=== PATIENT | female | born 1950 | race Caucasian/White ===

== ENCOUNTER 2020-06-19 07:55 | Outpatient (CLI) | payer MEDICARE, OTHER, SELFPAY ==
[2020-06-19 08:36] LABS: Basophils Percent Auto 0.5 % (0.2-1.2); Eosinophils Absolute Auto 0.1 K/mm3 (0-0.3); Eosinophils Percent Auto 2.9 % (0-4.4); Hematocrit 38.1 % (37.0-47.0); Hemoglobin 11.7 g/dL (12.0-15.0); Lymphocytes Absolute Auto 1.53 K/mm3 (0.9-3.2); Lymphocytes Percent Auto 36.9 % (18.3-44.2); Mean Corpuscular HGB Conc 30.7 g/dl (32-36); Mean Corpuscular Hemoglobin 19.8 pg (26-34); Mean Corpuscular Volume 64.6 fl (80-100); Mean Platelet Volume 10.3 fl (7.4-10.4); Monocytes Absolute Auto 0.2 K/mm3 (0.1-0.6); Monocytes Percent Auto 5.5 % (2.6-8.5); Neutrophils Absolute Auto 2.3 K/mm3 (1.3-6.7); Neutrophils Percent Auto 54.2 % (45.5-73.1); Platelet Count Result 260 k/mm3 (150-375); Red Cell Distribution Width 16.4 % (11.5-14.5); White Blood Count 4.2 K/mm3 (4.5-10.0)
[2020-06-19 09:00] LABS: Alanine Aminotransferase 24 U/L (4-35); Albumin Level 4.3 g/dL (3.5-5.1); Alkaline Phosphatase 69 U/L (38-126); Anion Gap 5 mmol/L (8-16); Aspartate Amino Transferase 31 U/L (14-36); Bilirubin,Total 0.4 mg/dL (0.2-1.3); Blood Urea Nitrogen 16 mg/dL (7-17); Calcium 9.2 mg/dL (8.4-10.2); Carbon Dioxide 29 mmol/L (22-30); Chloride 107 mmol/L (98-107); Cholesterol 188 mg/dL (0-200); Estimated Glomerular Filt Rate 55; Glucose 104 mg/dL (65-105); HDL Direct 45 mg/dL; Potassium 4.2 mmol/L (3.4-5.0); Sodium 141 mmol/L (137-145); Triglycerides 124 mg/dL (<150)
[2020-06-19 09:14] LABS: LDL Cholesterol Direct 115 mg/dL
[2020-06-23 20:12] LABS: Vitamin D 1,25 (OH)2 Total 65 pg/mL (18-72); Vitamin D2 1,25 (OH)2 <8 pg/mL; Vitamin D3 1,25 (OH)2 65 pg/mL
== END 2020-06-19 07:56 | disposition home or self-care (01) ==
PROVIDERS: PCP Family Medicine; Visit Provider Family Medicine
DX: E55.9 Vitamin D deficiency, unspecified (principal); F32.9 Major depressive disorder, single episode, unspecified; K27.9 Peptic ulcer, site unspecified, unspecified as acute or chronic, without hemorrhage or perforation; Z86.39 Personal history of other endocrine, nutritional and metabolic disease; D56.1 Beta thalassemia; M10.9 Gout, unspecified; Z98.84 Bariatric surgery status; E78.2 Mixed hyperlipidemia; E79.0 Hyperuricemia without signs of inflammatory arthritis and tophaceous disease
CPT/HCPCS: 36415; 80053; 80061; 82652; 84443; 84550; 85025

== ENCOUNTER 2020-08-13 08:46 | Outpatient (CLI) | payer MEDICARE, OTHER, SELFPAY ==
--- NOTE | ~2020-08-13 | MM_ITS ---
EXAMINATION: MM screening [facility] BI w ute HISTORY: Screening mammogram TECHNIQUE: Craniocaudal and mediolateral oblique 3-D tomosynthesis images were obtained and synthetic 2-D images were generated. CAD analysis was submitted and interpreted. COMPARISON: 10/28/2015 bilateral digital screening mammogram examination BREAST PARENCHYMAL COMPOSITION: There are scattered areas of fibroglandular density. FINDINGS: There is no evidence of suspicious mass, calcification, or architectural distortion to sugg est malignancy in either breast. There has been no suspicious interval change. IMPRESSION: 1. No mammographic evidence of malignancy. 2. Recommend routine screening mammography in one year. BI-RADS Category 1: Negative Reviewed, dictated and finalized at location A.
== END 2020-08-13 08:47 | disposition home or self-care (01) ==
LOC: ANHIMG 08:49
PROVIDERS: PCP Family Medicine; Visit Provider Family Medicine
DX: Z12.31 Encounter for screening mammogram for malignant neoplasm of breast (principal)
CPT/HCPCS: 77063; 77067

== ENCOUNTER → 2020-09-04 02:15 | Outpatient (CLI) | payer MEDICARE, OTHER, SELFPAY ==
[2020-09-04 19:56] LABS: SARS-CoV-2 RNA PCR Negative
== END ==
PROVIDERS: PCP Family Medicine; Visit Provider Internal Medicine Gastroenterology
DX: Z01.812 Encounter for preprocedural laboratory examination (principal); Z20.822 Contact with and (suspected) exposure to COVID-19
CPT/HCPCS: C9803; U0003; U0005

== ENCOUNTER 2020-09-08 02:59 | Day surgery (SDC) | payer MEDICARE, OTHER, SELFPAY ==
[2020-08-30 10:44] VITALS: BMI 30.6
--- NOTE | 2020-09-08 09:57 | PM.HPGS ---
History of Present Illness History of Present Illness Consent: Risks, benefits, and alternatives have been discussed and questions answered. Patient agrees to proceed with procedure. Chief complaint: hx of colon polyps Narrative: Thania Oliveira is a 70 year old female referred for colon cancer screening Review of Systems Review of Systems: All systems reviewed & are unremarkable except as noted in HPI and below PMFSH Past Medical History Medical History Adenomatous colon polyp Allergies Chronic anemia Encounter for screening colonoscopy History of hysteroscopy MDD (major depressive disorder) Neuropathy, sacral plexus Perforated ulcer PUD (peptic ulcer disease) Thalassemia, beta Surgical History Surgical History H/O gastric bypass History of cholecystectomy History of Dariel fundoplication Hx of endoscopy Hx of LASIK Family History Family History Father Lung cancer Mother Cerebrovascular accident Sibling CJD (Creutzfeldt-Russ disease) Other Gout Thalassemia, beta Social History Social History Social History: Smoking packs per day: 3 Smoking cigarettes per day: 60.0 Years smoked: 20 Smoking pack-years: 60.00 Smoking status: Former smoker Tobacco type: cigarettes Second hand tobacco smoke exposure: No Smoking end date: 10/18/93 Alcohol intake: unknown Substance use: never Substance use type: does not use Living arrangements: alone Gender identity (if verbalized by the patient): Female Meds Home Medications and Allergies Home Medications Medication Instructions Recorded Confirmed Type omeprazole 40 mg capsule,delayed 40 mg PO DAILY #90 cap 05/06/20 08/30/20 Rx release azelastine 137 mcg (0.1 %) nasal 137 mcg INTRANASAL Q12H #10 ml 06/18/20 08/30/20 Rx spray aerosol ezetimibe 10 mg tablet 10 mg PO DAILY #90 tablet 06/18/20 08/30/20 Rx fexofenadine 180 mg tablet 180 mg PO DAILY #90 tablet 06/18/20 08/30/20 Rx fluoxetine 10 mg tablet 10 mg PO DAILY #90 tablet 06/18/20 08/30/20 Rx fluticasone propionate 50 2 spray INTRANASAL DAILY #5 g 06/18/20 08/30/20 Rx mcg/actuation nasal spray,suspension montelukast 10 mg tablet 10 mg PO DAILY #90 tablet 06/18/20 08/30/20 Rx olopatadine 0.1 % eye drops 1 drp EACH EYE BID #5 ml 06/18/20 08/30/20 Rx linaclotide 145 mcg capsule 145 mcg PO DAILY #30 cap 06/25/20 08/30/20 Rx Bifidobacterium infantis [Align] 4 mg PO DAILY 08/30/20 08/30/20 History d-mannose 500 mg PO DAILY 08/30/20 08/30/20 History Allergies Allergy/AdvReac Type Severity Reaction Status Date / Time ciprofloxacin Allergy Mild RASH Verified 06/25/20 13:13 nitrofurantoin Allergy Unknown Hives / Verified 06/25/20 13:13 Red Face Exam Resp: Auscultation: clear to auscultation bilaterally Cardio: Rate: regular rate Rhythm: regular rhythm GI: GI Palp: Yes Soft to palpation and No Tenderness to palpation present (GI) Assessment and Plan Assessment and plan (1) Colon cancer screening: Code(s): Z12.11 - Encounter for screening for malignant neoplasm of colon Status: Acute Assessment and Plan: Colonoscopy with possible biopsy or polypectomy or cautery or injection of substances.
[2020-09-08 10:04] VITALS: BP 116/69; PULSE 57; RESP 16; TEMP 36.3; O2SAT 100; BMI 29.7
[2020-09-08] MEDS: LACTATED RINGERS 1,000 ML 150 ML IV CONT (10:09)
[2020-09-08 10:50] VITALS: BP 102/59; PULSE 50; RESP 25; O2SAT 99
[2020-09-08 11:00] VITALS: BP 123/70; PULSE 47; RESP 19; O2SAT 100
[2020-09-08 11:10] VITALS: PULSE 45; RESP 16; O2SAT 100
== END 2020-09-08 11:20 | disposition home or self-care (01) ==
PROVIDERS: PCP Family Medicine; Visit Provider Internal Medicine Gastroenterology
PROC: 0DJD8ZZ Inspection of Lower Intestinal Tract, Via Natural or Artificial Opening Endoscopic (ICD-10-PCS; CPT 45378; principal; 2020-09-08 10:30)
DX: Z12.11 Encounter for screening for malignant neoplasm of colon (principal); K63.5 Polyp of colon; D56.1 Beta thalassemia; D64.9 Anemia, unspecified; G54.1 Lumbosacral plexus disorders; K27.9 Peptic ulcer, site unspecified, unspecified as acute or chronic, without hemorrhage or perforation; Z98.84 Bariatric surgery status; F32.9 Major depressive disorder, single episode, unspecified; Z86.010 Personal history of colon polyps; Z90.49 Acquired absence of other specified parts of digestive tract; Z87.891 Personal history of nicotine dependence
CPT/HCPCS: 45380; 88305; J2704; J7120

== ENCOUNTER 2021-07-26 15:24 | Outpatient (CLI) | payer MEDICARE, OTHER, SELFPAY ==
[2021-07-26 15:43] LABS: Basophils Percent Auto 0.7 % (0.2-1.2); Eosinophils Absolute Auto 0.3 K/mm3 (0-0.3); Eosinophils Percent Auto 4.3 % (0-4.4); Hematocrit 35.6 % (37.0-47.0); Hemoglobin 11.1 g/dL (12.0-15.0); Immature Granulocyte Absolute 0.01 K/mm3 (0.00-0.031); Immature Granulocyte Percent A 0.2 % (0-0.5); Lymphocytes Absolute Auto 1.92 K/mm3 (0.9-3.2); Lymphocytes Percent Auto 32.1 % (18.3-44.2); Mean Corpuscular HGB Conc 31.2 g/dl (32-36); Mean Corpuscular Volume 64.3 fl (80-100); Mean Platelet Volume 10.2 fl (7.4-10.4); Monocytes Absolute Auto 0.5 K/mm3 (0.1-0.6); Monocytes Percent Auto 8.7 % (2.6-8.5); Neutrophils Absolute Auto 3.2 K/mm3 (1.3-6.7); Platelet Count Result 244 k/mm3 (150-375); Red Blood Count 5.54 M/mm3 (4.2-5.4); Red Cell Distribution Width 17.2 % (11.5-14.5)
[2021-07-26 15:57] LABS: Alanine Aminotransferase 21 U/L (4-35); Albumin Level 4.5 g/dL (3.5-5.1); Alkaline Phosphatase 82 U/L (38-126); Anion Gap 7 mmol/L (8-16); Aspartate Amino Transferase 31 U/L (14-36); Bilirubin,Total 0.5 mg/dL (0.2-1.3); Blood Urea Nitrogen 13 mg/dL (7-17); Calcium 8.6 mg/dL (8.4-10.2); Carbon Dioxide 23 mmol/L (22-30); Chloride 107 mmol/L (98-107); Cholesterol 231 mg/dL (0-200); Estimated Glomerular Filt Rate > 60; Glucose 116 mg/dL (65-110); HDL Direct 52 mg/dL; Potassium 4.5 mmol/L (3.4-5.0); Sodium 137 mmol/L (137-145); Triglycerides 360 mg/dL (<150)
[2021-07-26 16:08] LABS: LDL Cholesterol Direct 120 mg/dL
[2021-07-26 16:27] LABS: Thyroid Stimulating Hormone 0.123 uIU/mL (0.465-4.680)
== END 2021-07-26 15:25 | disposition home or self-care (01) ==
LOC: ANHLAB 15:29
PROVIDERS: PCP Family Medicine; Visit Provider Family Medicine
DX: I10 Essential (primary) hypertension (principal); E03.9 Hypothyroidism, unspecified; E78.2 Mixed hyperlipidemia; Z98.84 Bariatric surgery status
CPT/HCPCS: 36415; 80053; 80061; 82607; 84443; 85025

== ENCOUNTER 2021-08-10 01:31 | Day surgery (SDC) | payer MEDICARE, OTHER, SELFPAY ==
[2021-07-28 13:06] VITALS: BMI 30.6
[2021-08-10 12:41] VITALS: BP 151/75; PULSE 45; RESP 18; TEMP 36.1; O2SAT 100
[2021-08-10] MEDS: LACTATED RINGERS 1,000 ML 150 ML IV CONT (12:52)
--- NOTE | 2021-08-10 12:52 | WPDANESEPPF ---
Anes - Initial Pre Proc Eval Procedure: Operation Date: 08/10/21 13:45 Proposed Procedures p Esophagogastroduodenoscopy - Kevin Chapa MD Date/Time: 08/10/21 12:52 Surgeon: Kevin Chapa MD Pre Op Diagnosis: dysphagia Patient Data Age: 71 Gender: F Height: 1.68 m Weight: 88.6 kg Last Vital Signs Temp 97 F L 08/10/21 12:41 Pulse 45 L 08/10/21 12:41 Resp 18 08/10/21 12:41 BP 151/75 H 08/10/21 12:41 Pulse Ox 100 08/10/21 12:41 Allergies Allergy/AdvReac Type Severity Reaction Status Date / Time ciprofloxacin Allergy Mild RASH Verified 08/10/21 12:40 nitrofurantoin Allergy Unknown Hives / Verified 08/10/21 12:40 Red Face Home Medications Medication Instructions Recorded Confirmed Type Align 4 mg PO DAILY 08/30/20 07/28/21 History d-mannose 500 mg PO DAILY 08/30/20 07/28/21 History azelastine 137 mcg (0.1 %) nasal 137 mcg INTRANASAL Q12H #10 ml 01/04/21 07/28/21 Rx spray aerosol fexofenadine 180 mg tablet 180 mg PO DAILY #90 tablet 01/04/21 07/28/21 Rx fluticasone propionate 50 2 spray INTRANASAL DAILY #16 g 01/04/21 07/28/21 Rx mcg/actuation nasal spray,suspension omeprazole 40 mg capsule,delayed 40 mg PO DAILY #90 cap 04/05/21 07/28/21 Rx release ezetimibe [Zetia] 10 mg PO DAILY 07/28/21 07/28/21 History fluoxetine [Prozac] 40 mg PO DAILY 07/28/21 07/28/21 History Patient hx anesthesia problems: none Family hx anesthesia problems: none Results Review: All pre-operative results and documents have been reviewed as part of the pre-operative evaluation. [facility] Past Medical History Medical History Adenomatous colon polyp 2020, repeat in 2025 Allergies Bilateral pes planus Chronic anemia Encounter for screening colonoscopy MDD (major depressive disorder) Neuropathy, sacral plexus Perforated ulcer PUD (peptic ulcer disease) Thalassemia, beta Surgical History Surgical History H/O gastric bypass History of cholecystectomy History of hysteroscopy History of Dariel fundoplication Hx of endoscopy Hx of LASIK Family History Family History Father Lung cancer Mother Cerebrovascular accident Sibling CJD (Creutzfeldt-Russ disease) Other Gout Thalassemia, beta Social History Social History (Updated 07/26/21 @ 08:14 by Vane Honeycutt) Social History: Smoking packs per day: 2 Smoking cigarettes per day: 40.0 Years smoked: 20 Smoking pack-years: 40.00 Smoking status: Former smoker Tobacco type: cigarettes Second hand tobacco smoke exposure: No Smoking end date: 10/18/93 Alcohol intake: never Substance use: never Substance use type: does not use Living arrangements: with family Gender identity (if verbalized by the patient): Female Sexual Orientation (if Verbalized by the Patient): Straight or Heterosexual Spiritual care concerns: No Anes - Eval Final PreProcedure Day of Procedure 08/10/21 12:52 Patient weight: obese Heart: regular rate and rhythm Lungs: clear to auscultation Airway: Mallampati scale class II Neurological: alert and oriented Last oral intake: >/= 8 hours ASA classification: III Emergent: no Anesthetic plan: proceed Anesthesia type and monitoring: general GIVS and standard monitoring Results Review: All pre-operative results and documents have been reviewed as part of the pre-operative evaluation. Informed Consent: The patient's anesthetic plan and its attendant risks and benefits were discussed with the patient/family/POA. Questions were solicited and answers provided to the satisfaction of the patient/family/POA.
[2021-08-10 13:32] VITALS: BP 172/88; PULSE 60; RESP 18; O2SAT 97
[2021-08-10 13:42] VITALS: BP 162/83; PULSE 58; RESP 20; O2SAT 100
[2021-08-10 13:52] VITALS: BP 179/85; PULSE 50; RESP 18; O2SAT 100
--- NOTE | 2021-08-11 15:21 | PM.HPGS ---
History of Present Illness History of Present Illness Consent: Risks, benefits, and alternatives have been discussed and questions answered. Patient agrees to proceed with procedure. Chief complaint: dysphagia Narrative: Thania Oliveira is a 71 year old female with had difficulty swallowing for some time. She had an EGD 3 or 4 years ago but no narrowing was found. She states that is usually something like meat that will get caught either in the back of her throat her just inside the esophagus. It feels like it hangs up there. She can sometimes regurgitate what is not going down. Review of Systems Review of Systems: All systems reviewed & are unremarkable except as noted in HPI and below PMFSH Past Medical History Medical History Adenomatous colon polyp 2020, repeat in 2025 Allergies Bilateral pes planus Chronic anemia Encounter for screening colonoscopy MDD (major depressive disorder) Neuropathy, sacral plexus Perforated ulcer PUD (peptic ulcer disease) Thalassemia, beta Surgical History Surgical History H/O gastric bypass History of cholecystectomy History of hysteroscopy History of Dariel fundoplication Hx of endoscopy Hx of LASIK Family History Family History Father Lung cancer Mother Cerebrovascular accident Sibling CJD (Creutzfeldt-Russ disease) Other Gout Thalassemia, beta Social History Social History Social History: Smoking packs per day: 2 Smoking cigarettes per day: 40.0 Years smoked: 20 Smoking pack-years: 40.00 Smoking status: Former smoker Tobacco type: cigarettes Second hand tobacco smoke exposure: No Smoking end date: 10/18/93 Alcohol intake: never Substance use: never Substance use type: does not use Living arrangements: with family Gender identity (if verbalized by the patient): Female Sexual Orientation (if Verbalized by the Patient): Straight or Heterosexual Spiritual care concerns: No Meds Home Medications and Allergies Home Medications Medication Instructions Recorded Confirmed Type Align 4 mg PO DAILY 08/30/20 07/28/21 History d-mannose 500 mg PO DAILY 08/30/20 07/28/21 History azelastine 137 mcg (0.1 %) nasal 137 mcg INTRANASAL Q12H #10 ml 09/21/21 04/14/22 Rx spray aerosol fexofenadine 180 mg tablet 180 mg PO DAILY #90 tablet 01/04/21 07/28/21 Rx fluticasone propionate 50 2 spray INTRANASAL DAILY #16 g 01/04/21 07/28/21 Rx mcg/actuation nasal spray,suspension omeprazole 40 mg capsule,delayed 40 mg PO DAILY #90 cap 04/05/21 07/28/21 Rx release ezetimibe [Zetia] 10 mg PO DAILY 07/28/21 07/28/21 History fluoxetine [Prozac] 40 mg PO DAILY 07/28/21 07/28/21 History Allergies Allergy/AdvReac Type Severity Reaction Status Date / Time ciprofloxacin Allergy Mild RASH Verified 08/10/21 12:40 nitrofurantoin Allergy Unknown Hives / Verified 08/10/21 12:40 Red Face Exam Resp: Auscultation: clear to auscultation bilaterally Cardio: Rate: regular rate Rhythm: regular rhythm GI: GI Palp: Yes Soft to palpation and No Tenderness to palpation present (GI) Assessment and Plan Assessment and plan (1) Dysphagia: Code(s): R13.10 - Dysphagia, unspecified Status: Acute Assessment and Plan: EGD with possible biopsy or dilatation or cautery.
== END 2021-08-10 14:03 | disposition home or self-care (01) ==
PROVIDERS: PCP Family Medicine; Visit Provider Internal Medicine Gastroenterology
PROC: 0DJ08ZZ Inspection of Upper Intestinal Tract, Via Natural or Artificial Opening Endoscopic (ICD-10-PCS; CPT 43235; principal; 2021-08-10 13:45)
DX: R13.10 Dysphagia, unspecified (principal); K21.9 Gastro-esophageal reflux disease without esophagitis; Z98.84 Bariatric surgery status; Z87.891 Personal history of nicotine dependence; E66.9 Obesity, unspecified; Z68.31 Body mass index [BMI] 31.0-31.9, adult
CPT/HCPCS: 43239; 88305; J2001; J2704; J7120

== ENCOUNTER → 2021-08-19 02:12 | Outpatient (CLI) | payer MEDICARE, OTHER, SELFPAY ==
[2021-08-19 15:55] LABS: SARS-CoV-2 RNA PCR Negative
== END ==
PROVIDERS: PCP Family Medicine; Visit Provider Nurse Practitioner Gerontology
DX: R68.89 Other general symptoms and signs (principal); Z20.822 Contact with and (suspected) exposure to COVID-19
CPT/HCPCS: C9803; U0003; U0005

== ENCOUNTER 2021-08-30 09:44 | Outpatient (CLI) | payer MEDICARE, OTHER, SELFPAY ==
--- NOTE | ~2021-08-30 | MM_ITS ---
EXAMINATION: MM screening [facility] BI w ute HISTORY: Screening mammogram TECHNIQUE: Craniocaudal and mediolateral oblique 3-D tomosynthesis images were obtained and synthetic 2-D images were generated. CAD analysis was submitted and interpreted. COMPARISON: 08/13/2020, 10/28/2015, 03/25/2014 BREAST PARENCHYMAL COMPOSITION: There are scattered areas of fibroglandular density. FINDINGS: There is no suspicious mass, calcification, or architectural distortion to suggest malignan cy in either breast. There has been no suspicious interval change. IMPRESSION: 1. No mammographic evidence of malignancy. 2. Recommend routine screening mammography in one year. BI-RADS Category 1: Negative Reviewed, dictated and finalized at location A.
== END 2021-08-30 09:45 | disposition home or self-care (01) ==
PROVIDERS: PCP Family Medicine; Visit Provider Family Medicine
DX: Z12.31 Encounter for screening mammogram for malignant neoplasm of breast (principal)
CPT/HCPCS: 77063; 77067

== ENCOUNTER 2021-09-10 10:01 | Outpatient (CLI) | payer MEDICARE, OTHER, SELFPAY ==
[2021-09-10 11:44] LABS: Free T4 Free Thyroxine 1.21 ng/mL (0.78-2.19)
== END 2021-09-10 10:02 | disposition home or self-care (01) ==
PROVIDERS: PCP Family Medicine; Visit Provider Nurse Practitioner Gerontology
DX: E03.9 Hypothyroidism, unspecified (principal)
CPT/HCPCS: 36415; 84439; 84443; 84480

== ENCOUNTER 2021-10-19 04:49 | Observation (INO) | payer MEDICARE, OTHER, SELFPAY ==
[2021-10-19] VITALS (37 sets, daily range): BP systolic 119–183; BP diastolic 65–83; PULSE 41–62; RESP 8–20; TEMP 36.5–37.1; O2SAT 96–100; BMI 29.9
--- NOTE | ~2021-10-19 | CT_ITS ---
EXAMINATION: CT brain wo con DATE: 10/19/2021 15:34 INDICATION: dizzy . TECHNIQUE: Computed tomography (CT) of the head was performed without intravenous contrast. The mA wa s adjusted according to patient size. Iterative reconstruction technique was employed. The dose-lengt h product was 605.33 mGy-cm. COMPARISON: 05/29/2010. FINDINGS: No acute intracranial hemorrhage or extra-axial fluid collection. No hydrocephalus, mass, or herniation. No acute ischemic infarct. Unremarkable dural venous sinus attenuation. No acute osseous abnormality. Small left mastoid effusion, otherwise the aerated spaces are clear. Mild atrophy and chronic white matter change. Atherosclerotic intracranial calcifications. IMPRESSION: No acute intracranial process. Reviewed, dictated and finalized at location K.
--- NOTE | ~2021-10-19 | NM_ITS ---
EXAMINATION: NM hailee stress w perfusion DATE: 10/20/2021 10:17 INDICATION: Chest pain TECHNIQUE: Rest images were obtained following intravenous administration of 10.469 mCi Tc99m tetrofo smin (Myoview). The patient was infused intravenously with Lexiscan (Regadenoson). Then, 34.5 mCi Tc9 9m tetrofosmin (Myoview) was administered intravenously, and stress images were obtained. Data was re constructed into short axis and horizontal and vertical long axis SPECT images. Gated SPECT images we re also obtained. COMPARISON: None. FINDINGS: There is no definite reversible or fixed perfusion abnormality to suggest ischemia or infar ction. There is normal left ventricular chamber size, wall motion and ejection fraction. Left ventr icular ejection fraction measures 69%. IMPRESSION: 1. Normal myocardial perfusion at rest and during stress. 2. Left ventricular ejection fraction measuring 69%. Reviewed, dictated and finalized at location A.
--- NOTE | ~2021-10-19 | XR_ITS ---
EXAMINATION: XR chest 2V DATE: 10/19/2021 06:48 INDICATION: Chest pain TECHNIQUE: PA and lateral views of the chest were obtained. COMPARISON: Chest radiograph and CT dated 05/22/2018 FINDINGS: A few small calcified nodules at the left costophrenic angle consistent with old granulomatous diseas e. The lungs remain otherwise clear with no focal airspace opacities, pulmonary edema, pleural effusi on or pneumothorax. The cardiomediastinal silhouette is normal. Cholecystectomy clips in the right up per quadrant. Moderate thoracic spondylosis. IMPRESSION: 1. No acute cardiopulmonary disease. Reviewed, dictated and finalized at location A.
--- NOTE | ~2021-10-19 | US_ITS ---
EXAMINATION: US venous doppler [facility] DATE: 10/19/2021 13:08 INDICATION: Chest pain TECHNIQUE: Maurer scale images without and with compression and Doppler images of the bilateral lower e xtremity veins were obtained. COMPARISON: None FINDINGS: The right common femoral vein, profunda femoral vein, femoral vein, popliteal vein, peroneal trunk, p osterior tibial veins, and greater saphenous vein are patent. The left common femoral vein, profunda femoral vein, femoral vein, popliteal vein, peroneal trunk, po sterior tibial veins, and greater saphenous vein are patent. IMPRESSION: 1. Patent bilateral lower extremity veins. No evidence of deep venous thrombosis. Reviewed, dictated and finalized at location B. IMPRESSION: 1. Patent bilateral lower extremity veins. No evidence of deep venous thrombosi s.
--- NOTE | 2021-10-19 05:01 | ECG_ITS ---
Measurements Intervals [place] Rate: 42 P: 40 IN: 157 QRS: -15 QRSD: 72 T: 45 QT: 437 QTc: 366 Interpretive Statements SINUS BRADYCARDIA CANNOT RULE OUT SEPTAL INFARCT, AGE INDETERMINATE ABNORMAL ECG Electronically Signed On 10-19-2021 6:18:10 CDT by Marcelino Alexis D.O.
[2021-10-19 05:23] LABS: Basophils Percent Auto 0.8 % (0.2-1.2); Eosinophils Absolute Auto 0.2 K/mm3 (0-0.3); Hematocrit 37.9 % (37.0-47.0); Hemoglobin 11.5 g/dL (12.0-15.0); Immature Granulocyte Absolute 0.01 K/mm3 (0.00-0.031); Immature Granulocyte Percent A 0.2 % (0-0.5); Immature Platelet Fraction Pct 6.6 % (0.9-11.2); Lymphocytes Absolute Auto 2.32 K/mm3 (0.9-3.2); Lymphocytes Percent Auto 48.9 % (18.3-44.2); Mean Corpuscular HGB Conc 30.3 g/dl (32-36); Mean Corpuscular Hemoglobin 19.8 pg (26-34); Mean Corpuscular Volume 65.1 fl (80-100); Mean Platelet Volume 10.3 fl (7.4-10.4); Monocytes Absolute Auto 0.4 K/mm3 (0.1-0.6); Monocytes Percent Auto 7.4 % (2.6-8.5); Neutrophils Absolute Auto 1.8 K/mm3 (1.3-6.7); Neutrophils Percent Auto 38.7 % (45.5-73.1); Platelet Count Result 229 k/mm3 (150-375); Red Blood Count 5.82 M/mm3 (4.2-5.4); Red Cell Distribution Width 17.6 % (11.5-14.5); White Blood Count 4.7 K/mm3 (4.5-10.0)
[2021-10-19 05:31] LABS: Alanine Aminotransferase 22 U/L (6-35); Albumin Level 4.5 g/dL (3.5-5.1); Alkaline Phosphatase 88 U/L (38-126); Anion Gap 7 mmol/L (8-16); Aspartate Amino Transferase 34 U/L (14-36); Bilirubin,Total 0.8 mg/dL (0.2-1.3); Blood Urea Nitrogen 19 mg/dL (7-17); Carbon Dioxide 25 mmol/L (22-30); Chloride 107 mmol/L (98-107); Estimated CRCL calculation 51 ml/min; Estimated Glomerular Filt Rate 55; Glucose 90 mg/dL (65-110); Lipase 177 U/L (23-300); Potassium 4.5 mmol/L (3.4-5.0); Sodium 139 mmol/L (137-145)
[2021-10-19 05:32] LABS: Prothrombin Time 13.1 Seconds (11.1-14.7)
[2021-10-19 05:33] LABS: Partial Thromboplastin Time 33.2 SECONDS (22.3-36.8)
[2021-10-19 05:43] LABS: Troponin I < 0.012 ng/mL (0.000-0.034)
--- NOTE | 2021-10-19 05:46 | ED.CHESTPAIN ---
HPI - Chest Pain General Chief Complaint: Chest Pain Stated Complaint: chest burning, leg pain, ear pain Time Seen by Provider: 10/19/21 05:13 History of Present Illness HPI narrative: 71-year-old female presented to the Emergency Department for evaluation of intermittent chest pain that radiates up to her right ear. Patient reports she has been having the symptoms intermittently over the last few weeks. Patient denies any prior history of OH. Patient's last stress test was approximately 10 years ago. Patient states that this morning she woke up from her sleep with a chest pressure and tightness that radiated up to her right ear. Patient states that she has been having the symptoms at rest and with activity over the last 2 weeks. Patient states typically last about 20 minutes but the symptoms had persisted tonight. Related Data Home Medications Medication Instructions Recorded Confirmed d-mannose 500 mg capsule 500 mg PO DAILY 08/30/20 10/19/21 ezetimibe 10 mg tablet (Zetia) 10 mg PO DAILY 07/28/21 10/19/21 fluoxetine 40 mg capsule (Prozac) 20 mg PO DAILY 07/28/21 10/19/21 Align 1 tablet PO BID 10/19/21 10/19/21 Neuriva Original 200 mg PO HS 10/19/21 10/19/21 Pataday Once Daily Relief 2.5 ml EACH EYE DAILY 10/19/21 10/19/21 biotin 10,000 mcg PO DAILY 10/19/21 10/19/21 d-mannose 1,300 mg PO DAILY 10/19/21 10/19/21 Allergies Allergy/AdvReac Type Severity Reaction Status Date / Time ciprofloxacin Allergy Mild RASH Verified 10/19/21 05:54 nitrofurantoin Allergy Unknown Hives / Verified 10/19/21 05:54 Red Face Review of Systems Review of Systems: CONSTITUTIONAL: Denies fever, chills, or sweats. EYES: Denies visual changes, redness, or discharge. ENT: Denies rhinorrhea, congestion, sore throat, or otalgia. CARDIOVASCULAR: See HPI RESPIRATORY: Denies cough or dyspnea. GASTROINTESTINAL: Denies abdominal pain, nausea, vomiting, or diarrhea. GENITOURINARY: Denies dysuria or hematuria. SKIN: Denies rash or itching. MUSCULOSKELETAL: Denies back pain, joint pain, or myalgia. NEUROLOGIC: Denies headache, numbness, or weakness. PMFSH Past Medical History Medical History Adenomatous colon polyp 2020, repeat in 2025 Allergies Bilateral pes planus Chronic anemia Encounter for screening colonoscopy MDD (major depressive disorder) Neuropathy, sacral plexus Perforated ulcer PUD (peptic ulcer disease) Thalassemia, beta Surgical History Surgical History H/O gastric bypass History of cholecystectomy History of hysteroscopy History of Dariel fundoplication Hx of endoscopy Hx of LASIK Family History Family History Father Lung cancer Mother Cerebrovascular accident Sibling CJD (Creutzfeldt-Russ disease) Other Gout Thalassemia, beta Social History Social History Social History: Smoking packs per day: 2 Smoking cigarettes per day: 40.0 Years smoked: 20 Smoking pack-years: 40.00 Smoking status: Former smoker Tobacco type: cigarettes Second hand tobacco smoke exposure: No Smoking end date: 10/18/93 Alcohol intake: never Substance use: never Substance use type: does not use Gender identity (if verbalized by the patient): Female Sexual Orientation (if Verbalized by the Patient): Straight or Heterosexual Spiritual care concerns: No Course Course Emergency Course: Patient is being admitted to the hospitalist for further cardiac rule out. Patient troponin was negative. Vital Signs Vital signs: Vital Signs Temperature 97.9 F 10/19/21 04:56 Pulse Rate 47 L 10/19/21 04:56 Respiratory Rate 18 10/19/21 04:56 Blood Pressure 163/83 H 10/19/21 04:56 Pulse Oximetry 100 10/19/21 04:56 Oxygen Delivery Room Air 10/19/21 04:56 Temperature 97.9
[2021-10-19] MEDS: ASPIRIN 81 MG CHEWABLE TABLET 324 MG PO (05:52)
[2021-10-19] MEDS: NITROGLYCERIN SL 0.4 MG TABLET SUBLINGUAL (05:53)
[2021-10-19 07:57] LABS: SARS-CoV-2 RNA PCR Negative
[2021-10-19 08:22] LABS: Troponin I < 0.012 ng/mL (0.000-0.034)
--- NOTE | 2021-10-19 08:46 | PC.NURSE ---
Pt resting comfortably on stretcher. Updated on plan of care. Pt has no questions or requests at this time. Spouse at bedside. Call light within reach.
--- NOTE | 2021-10-19 09:30 | PC.NURSE ---
RN unavailable for report.
--- NOTE | 2021-10-19 09:53 | PC.NURSE ---
RN unavailable for report.
[2021-10-19] MEDS: ASPIRIN 81 MG CHEWABLE TABLET PO (10:59)
[2021-10-19 11:32] LABS: Troponin I < 0.012 ng/mL (0.000-0.034)
[2021-10-19 12:52] LABS: D Dimer 0.46 ug/mL (<0.48)
[2021-10-19 13:14] LABS: Glucose Point of Care 99 mg/dl (65-105)
--- NOTE | 2021-10-19 15:11 | PM.IMHP ---
H&P: HPI History of Present Illness Date/Time: 10/19/21 15:11 Chief Complaint: Chest pain Narrative: 71yo female with hx of B-Thalassemia, chronic anemia and PUD here for chest pain. Patient states that she walks 3-5 miles a day. She denies any chest pain or shortness of breath with this activity. She has been feeling dizzy for the past year when she walks that she describes as lightheadedness. This symptom has been progressively worsening over time. She also has been having stumbling episodes where she would walk into [facility]?. has also noted that patient with tremors of the hands at times for the past 6 months. No workup has been done regarding these symptoms. Patient, over the past 3 months, has been complaining of substernal pressure and burning. She is status post Dariel fundoplication and bariatric surgery with a Leticia-en-Y. Also had peptic ulcer disease with perforation in 2009 requiring surgery. She has a history of colon polyps and most recent colonoscopy was in August 2020 which again showed colon polyps that were removed. Because of the burning and chest tightness, she was seen by GI and underwent EGD on 08/10/2021. This showed nonerosive reflux disease. Patient is on Prilosec daily. No history of sleep apnea. No episodes of apnea per but she does snore on occasion. No daytime somnolence. She has been having problem swallowing with the chest tightness. Around 0345am on the morning of admission she was awoken with substernal and right-sided chest discomfort she describes as ?tightness? and ?pressure?. Symptoms lasted about 15 minutes. She is not sure if it went up into her right jaw. She has right ear pain on occasion the past 5 months off and on without clear etiology. She has had this evaluated without obvious etiology. She was nauseous with diaphoresis with the chest pain. No headaches. She had left hand and arm tingling but does have a ?pinched nerve? in the left elbow. She also mentions that she had a left calf tightness as well. No history of DVTs or PEs. Because of this reason she presented to the emergency room for evaluation. In the Emergency room, she was bradycardic with a pulse of 47 and blood pressure 163/83. she was 100% on room air. EKG shows sinus bradycardia rate of 42. Cannot rule out old septal infarct. No old EKG to review. Patient does have a microcytic anemia but does have beta thalassemia. BUN was 19 but creatinine normal. Troponin negative x3. LFTs normal. COVID negative. Chest x-ray was clear. She was started on aspirin and admitted for further care. Review of Systems Review of Systems: All systems reviewed & are unremarkable except as noted in HPI and below PMFSH Past Medical History Medical History Adenomatous colon polyp 2020, repeat in 2025 Allergies Bilateral pes planus Chronic anemia Encounter for screening colonoscopy MDD (major depressive disorder) Neuropathy, sacral plexus Perforated ulcer PUD (peptic ulcer disease) Thalassemia, beta Surgical History Surgical History H/O gastric bypass History of cholecystectomy History of hysteroscopy History of Dariel fundoplication Hx of endoscopy Hx of LASIK Family History Family History Father Lung cancer Mother Cerebrovascular accident Gout Sibling CJD (Creutzfeldt-Russ disease) Gout Other Thalassemia, beta Social History Social History Social History: Smoking packs per day: 2 Smoking cigarettes per day: 40.0 Years smoked: 20 Smoking pack-years: 40.00 Smoking status: Former smoker Tobacco type: cigarettes Second hand tobacco smoke exposure: No Smoking end date: 10/18/93 Alcohol intake: former Substance use: never Substance use type: does
--- NOTE | 2021-10-19 15:17 | PC.NURSE ---
1020 This patient, Thania Oliveira, was admitted to IMU Room 200-01. Patient/family oriented to hospital policies and general routines including ID bracelet, bed and alarms, visiting hours, pain management, procedures, bathroom and other care routines, personal items, smoking policy, room service/diet, and visiting hours. Information on how to activate the Rapid Response Team has been discussed. Patient/Family are encouraged to report perceived risks to care and to ask questions if they do not understand what they are told or what they should do.
[2021-10-19 20:05] LABS: Folic Acid 11.5 ng/mL (2.76->20)
[2021-10-19] MEDS: FAMOTIDINE 20 MG TABLET PO (20:55)
[2021-10-19] MEDS: OLOPATADINE 0.1% OPHTH SOLN 5 ML BTL 1 DROP EACH EYE (20:57)
[2021-10-19] MEDS: BELLADONNA ALK/PHENOB ELIX 10 ML, MAG HYDROX/ALUMINUM HYD/SIMETH 30 ML, LIDOCAINE HCL 2... PO (21:22)
[2021-10-20] VITALS (7 sets, daily range): BP systolic 140–145; BP diastolic 60–79; PULSE 37–67; RESP 16–18; TEMP 36.1–36.5; O2SAT 99
[2021-10-20 06:02] LABS: Rapid Plasma Reagin Non-Reactive (NonReactive)
[2021-10-20] MEDS: FLUoxetine HCL 20 MG CAPSULE PO (11:01)
[2021-10-20] MEDS: PANTOPRAZOLE 40 MG TABLET PO (11:02)
[2021-10-20] MEDS: EZETIMIBE 10 MG TABLET PO (11:02)
[2021-10-20] MEDS: ASPIRIN 81 MG CHEWABLE TABLET PO (11:02)
[2021-10-20] MEDS: ENOXAPARIN 40 MG/0.4 ML SYRINGE SUB-Q (11:03)
[2021-10-20] MEDS: OLOPATADINE 0.1% OPHTH SOLN 5 ML BTL 1 DROP EACH EYE (11:04)
[2021-10-20] MEDS: FLUTICASONE PROPIONATE 0.05% NA SPR 16 GM BTL (*BKC) 2 SPRAY NASAL (11:04)
--- NOTE | 2021-10-20 11:46 | PM.DS ---
DS: Admitting Diagnosis Discharge Date 10/20/21 Admitting Diagnosis Chest pain DS: Discharge Diagnosis Discharge Diagnosis (1) Chest pain: Qualifiers: Chest pain type: unspecified Qualified Code(s): R07.9 - Chest pain, unspecified Code(s): R07.9 - Chest pain, unspecified Status: Acute (2) Bradycardia: Code(s): R00.1 - Bradycardia, unspecified Status: Acute (3) Thalassemia, beta: Code(s): D56.1 - Beta thalassemia Status: Acute (4) Ataxia: Code(s): R27.0 - Ataxia, unspecified Status: Acute (5) PUD (peptic ulcer disease): Code(s): K27.9 - Peptic ulcer, site unspecified, unspecified as acute or chronic, without hemorrhage or perforation Status: Acute (6) Calf pain: Code(s): M79.669 - Pain in unspecified lower leg Status: Acute DS: Summary Hospital Course Reason for hospitalization: 71yo female admitted for chest pain. Please see H&P for details. Hospital Course: Patient was admitted to IMU. Troponins negative x3. EKG showed sinus bradycardia rate 40 to and QS pattern in V1 and V2, cannot rule out old septal infarct. Dimer was negative. She was having calf pain but lower extremity venous Dopplers were negative for DVT. We checked a CT of the brain given her neurologic complaints which was normal; may need MRI to further visualize the cerebellum. She has had bariatric surgery and is on vitamins (iron, B12, etc) delivered by patch. RPR was nonreactive. Folate normal. B12 pending. We resumed and majority of her home medications. We continued her Prilosec. She did have another episode in the hospital that resolved with GI cocktail. We did proceed with stress test due to her progressively worsening SOB with exertion better with rest. Lexiscan stress test showed normal myocardial perfusion at rest and during stress, EF 69%. She was bradycardia overnight in the 40's. She does appear to have chronic bradycardia. She does see Cardiology already. She denies sleep apnea symptoms such as daytime somnolence and her denies that the patient has apneic spells. Her low heart rate may be contributing to her BAZZI. Consider sleep study and will deer to the primary care doctor. Overall, felt symptoms related to acid reflux so PPI advanced. She feels well and was requesting discharge. She was able to be discharged home on 10/20/21. Status at Discharge Cognitive/behavioral status at discharge: Stable Time Spent with Patient Time attestation: Total time spent providing and/or coordinating discharge services: 35 minutes Time spent: Greater than 30 minutes Exam Narrative: AF 97.0 141/79 67 16 99% ra Gen - NARD Chest - CTA bilaterally, nml RR CV - RRR S1/S2; Tele showing sinus bradycardia Abd - soft, NT/ND, +BS Ext - no pedal edema. Psych - normal mood and affect. Skin - warm and dry. DS: Data Data Completed and Pending Labs on day of discharge: Labs from last 24 hours 10/19/21 10/19/21 10/19/21 13:54 13:54 13:11 D-Dimer POC Capillary Glucose 99 Vitamin B12 Pending Folate 11.5 RPR Non-reactive 10/19/21 05:13 D-Dimer 0.46 POC Capillary Glucose Vitamin B12 Folate RPR Discharge Plan Discharge Attending physician on discharge: Amanuel Ashby Discharging Clinician: Amanuel Ashby Anticipated Discharge Date/Time: 10/20/21 12:25 Patient Disposition: Home, Self-Care Activity: as tolerated Diet: regular Discharge Instructions: Take precautions to avoid falls. Rise slowly from a lying or sitting position. Pause before standing or walking. Contact your doctor or call 911 and come to the Emergency Room if you have increasing shortness of breath or other worrisome symptoms. Avoid NSAIDs (ibuprofen, naproxen, Aleve). Tylenol is safe to take. Follow-up with your primary care doctor in 1-2 weeks to discuss possible sleep study. Please call for appointment. Follow
--- NOTE | 2021-10-20 13:25 | EST_ITS ---
Patient Info Name: Thania Oliveira Age: 71 years : 1950 Gender: Female Ht: 66 in Wt: 185 lbs BSA: 2.00 m2 HR: 44 bpm BP: 145 / 66 mmHg Heart Rhythm: Sinus Rhythm Exam Date: 10/20/2021 9:02 AM Exam Location: [facility] Stress Patient Status: Inpatient Admit Date: 10/19/2021 Staff Ordering Physician: Amanuel Ashby MD Attending Provider: Jerrica Jaime DO Exercise Technologist: Christen Rizzo, CT Nurse: soila marcum Exam Type: CA stress hailee w NM Study Info Indications R07.9 - Chest pain, unspecified A regadenoson stress test was performed. Summary 1. Sinus bradycardia. 2. Myocardial perfusion results to be reported by radiology. 3. No ST abnormalities seen after lexiscan injection. Protocol: Lexiscan Stress ECG Details Stage: REST Duration (min): 1 min : 2 sec HR (bpm): 45 SBP (mmHg): 145 DBP (mmHg): 66 Stage: REST Duration (min): 7 min : 56 sec HR (bpm): 43 SBP (mmHg): 145 DBP (mmHg): 66 Stage: STAGE 1 Duration (min): 1 min : 0 sec HR (bpm): 57 SBP (mmHg): 109 DBP (mmHg): 58 Stage: RECOVERY Duration (min): 1 min : 0 sec HR (bpm): 65 SBP (mmHg): 109 DBP (mmHg): 58 Stage: RECOVERY Duration (min): 2 min : 0 sec HR (bpm): 58 SBP (mmHg): 109 DBP (mmHg): 58 Stage: RECOVERY Duration (min): 3 min : 0 sec HR (bpm): 47 SBP (mmHg): 112 DBP (mmHg): 62 Stage: RECOVERY Duration (min): 3 min : 31 sec HR (bpm): 62 SBP (mmHg): 112 DBP (mmHg): 62 Rest HR: 43 bpm Peak HR: 67 bpm Rest Sys BP: 145 mmHg Peak Sys BP: 112 mmHg Max Pred HR: 151 bpm % Max Pred HR: 44 % Target HR: 128 bpm Max RPP: 7,504 bpm*mmHg Termination Reason: Completed protocol Cardiac Symptoms: None Total Time: 1 min : 0 sec Rest Vang BP: 66 mmHg Peak Vang BP: 62 mmHg Total Dose: 0.4 mg Resting ECG Sinus bradycardia. Stress ECG No ST/T abnormalies after lexiscan injection. Report Signatures
--- NOTE | 2021-10-20 14:28 | PC.NURSE ---
Pt given discharge forms and primary nurse explained. Pt PIV taken out and pt left off unit stable with and all personal belongings.
--- NOTE | 2021-10-22 07:43 | PC.NURSE ---
B12 is WNL at 213.0 Stress Test- Nml. Dr. Ashby aware of above findings.
--- NOTE | 2021-10-22 08:11 | PC.NURSE ---
Stress test results faxed to Dr. Spence.
== END 2021-10-20 14:00 | disposition home or self-care (01) ==
LOC: ANHED 06:32 → ANHIMU 08:58
PROVIDERS: Admitting Provider Internal Medicine; Emergency Provider Emergency Medicine; PCP Family Medicine; Visit Provider Internal Medicine
DX: R07.9 Chest pain, unspecified (principal); R00.1 Bradycardia, unspecified; D56.1 Beta thalassemia; R27.0 Ataxia, unspecified; K27.9 Peptic ulcer, site unspecified, unspecified as acute or chronic, without hemorrhage or perforation; M79.669 Pain in unspecified lower leg; F32.A Depression, unspecified; G62.9 Polyneuropathy, unspecified; Z98.84 Bariatric surgery status; Z87.891 Personal history of nicotine dependence; Z20.822 Contact with and (suspected) exposure to COVID-19
CPT/HCPCS: 36415; 70450; 71046; 78452; 80053; 82607; 82746; 82948; 83690; 84484; 85025; 85055; 85380; 85610; 85730; 86592; 93005; 93017; 93970; 96372; 99285; A9270; A9502; C9803; G0378; J1650; J2785; U0003; U0005

== ENCOUNTER 2021-11-01 08:44 | Outpatient (CLI) | payer MEDICARE, OTHER, SELFPAY ==
--- NOTE | ~2021-11-01 | DEXA_ITS ---
Bone Density Report Name: PRINCESS MEYERS Age: 71 Sex: Female Ethnicity: White Date of : 1950 Indication: postmenopausal; screening for osteoporosis; asthma or emphysema; Referring Provider: CAMRON CAMERON Study: Bone densitometry was performed. Exam Date: November 01, 2021 Accession number: [id number] Bone Density: Region BMD T-score Z-score Classification AP Spine(L1, L2, L3) 0.994 -0.2 1.8 Normal Femoral Neck (Left) 0.762 -0.8 1.0 Normal Total Hip (Left) 0.933 -0.1 1.4 Normal Femoral Neck (Right) 0.724 -1.1 0.6 Osteopenia Total Hip (Right) 0.887 -0.5 1.0 Normal Total Hip Mean 0.910 -0.3 1.2 Normal World Health Organization criteria for BMD impression classify patients as: Normal (T-score at or above -1.0), Osteopenia (T-score between -1.0 and -2.5), or Osteoporosis (T-score at or below -2.5). 10-year Fracture Risk(1): Major Osteoporotic Fracture 8.7% Hip Fracture 0.9% Reported Risk Factors: [place] (), Neck BMD=0.724, BMI=29.5 (1) FRAX(R) Version 3.08. Fracture probability calculated for an untreated patient. Fracture probability may be lower if the patient has received treatment. Clinical Information Provided by Patient: Has used the following medications: Vitamin D, Calcium Has the following medical conditions: Asthma or Emphysema Patient maximum height was 66 Menopause Age: 52 Does not regularly consume dairy products Drinks caffeinated beverages Onset of menses at age 12 Number of children 2 Impression: The patient has low bone mass, based on the Right Femoral Neck T-score. The patient has an estimated ten-year risk of hip fracture of 0.9% and an estimated ten-year risk of major fracture of 8.7%, based on the WHO FRAX algorithm. Discussion: BONE DENSITY IS LOW AT ONE OR MORE SKELETAL SITES. This patient's lowest T-score is low at one or more skeletal sites. It meets the World Health Organization's (WHO) criteria for ?low bone mass? (T-score between -1.0 and -2.5). The patient's 10-year risk of fracture as calculated by FRAX is less than the threshold where pharmacological therapy is recommended by the National Osteoporosis Foundation (NOF). However, all treatment decisions require clinical judgment and consideration of individual patient factors, including patient preferences, comorbidities, previous drug use, risk factors not captured in the FRAX model (e.g., frailty, falls, vitamin D deficiency, increased bone turnover, interval significant decline in bone density) and possible under or overestimation of fracture risk by FRAX. The patient should follow a healthful lifestyle (good nutrition with adequate calcium and vitamin D, and appropriate weight-bearing exercise). Follow-Up: Consider repeating this study in 2 to 3 years to reassess this patient's statu
== END 2021-11-01 08:45 | disposition home or self-care (01) ==
PROVIDERS: PCP Family Medicine; Visit Provider Physician Assistant
DX: Z78.0 Asymptomatic menopausal state (principal); M85.851 Other specified disorders of bone density and structure, right thigh
CPT/HCPCS: 77080

== ENCOUNTER 2022-05-02 09:42 | Outpatient (CLI) | payer MEDICARE, OTHER, SELFPAY ==
[2022-05-02 10:08] LABS: Basophils Percent Auto 0.7 % (0.2-1.2); Eosinophils Absolute Auto 0.3 K/mm3 (0-0.3); Eosinophils Percent Auto 4.9 % (0-4.4); Hematocrit 36.6 % (37.0-47.0); Immature Granulocyte Absolute 0.02 K/mm3 (0.00-0.031); Immature Granulocyte Percent A 0.3 % (0-0.5); Lymphocytes Absolute Auto 1.48 K/mm3 (0.9-3.2); Lymphocytes Percent Auto 24.3 % (18.3-44.2); Mean Corpuscular HGB Conc 30.1 g/dl (32-36); Mean Corpuscular Hemoglobin 19.4 pg (26-34); Mean Corpuscular Volume 64.7 fl (80-100); Mean Platelet Volume 10.4 fl (7.4-10.4); Monocytes Absolute Auto 0.4 K/mm3 (0.1-0.6); Monocytes Percent Auto 7.2 % (2.6-8.5); Neutrophils Absolute Auto 3.8 K/mm3 (1.3-6.7); Neutrophils Percent Auto 62.6 % (45.5-73.1); Nucleated Red Blood Cells Perc 0.3 % (0.0-0.2); Platelet Count Result 242 k/mm3 (150-375); Red Blood Count 5.66 M/mm3 (4.2-5.4); Red Cell Distribution Width 17.5 % (11.5-14.5); White Blood Count 6.1 K/mm3 (4.5-10.0)
[2022-05-02 10:45] LABS: Anisocytosis 1+ (NORMAL); Hypochromasia 2+ (NORMAL); Platelet Estimate Adequate (Adequate); Schistocytes None Seen (NORMAL)
[2022-05-02 10:56] LABS: Alanine Aminotransferase 25 U/L (6-35); Albumin Level 4.4 g/dL (3.5-5.1); Alkaline Phosphatase 82 U/L (38-126); Anion Gap 6 mmol/L (8-16); Aspartate Amino Transferase 31 U/L (14-36); Bilirubin,Total 0.6 mg/dL (0.2-1.3); Blood Urea Nitrogen 11 mg/dL (7-17); Carbon Dioxide 30 mmol/L (22-30); Chloride 105 mmol/L (98-107); Estimated Glomerular Filt Rate > 60; Glucose 102 mg/dL (65-110); Potassium 4.5 mmol/L (3.4-5.0); Sodium 141 mmol/L (137-145)
[2022-05-02 11:23] LABS: Total Triiodothyronine (T3) 1.22 NG/ML (0.97-1.69)
[2022-05-02 11:44] LABS: Vitamin B12 > 1000.0 pg/mL (239-931)
[2022-05-02 12:01] LABS: Iron 127 ug/dL (37-170)
[2022-05-02 12:10] LABS: Percent Iron Saturation 35 % (20-50)
[2022-05-02 12:13] LABS: Free T4 Free Thyroxine 1.12 ng/mL (0.78-2.19)
[2022-05-05 23:20] LABS: Vitamin D 1,25 (OH)2 Total 55 pg/mL (18-72); Vitamin D2 1,25 (OH)2 <8 pg/mL; Vitamin D3 1,25 (OH)2 55 pg/mL
== END 2022-05-02 09:43 | disposition home or self-care (01) ==
PROVIDERS: PCP Family Medicine; Visit Provider Nurse Practitioner Gerontology
DX: E55.9 Vitamin D deficiency, unspecified (principal); E53.8 Deficiency of other specified B group vitamins; R00.1 Bradycardia, unspecified; E03.9 Hypothyroidism, unspecified; E78.5 Hyperlipidemia, unspecified; D56.1 Beta thalassemia; M10.9 Gout, unspecified; D64.9 Anemia, unspecified
CPT/HCPCS: 36415; 80053; 82607; 82652; 83540; 83550; 84439; 84443; 84480; 85025

== ENCOUNTER 2022-06-04 18:20 | Emergency (ER) | payer MEDICARE, OTHER, SELFPAY ==
[2022-06-04 18:31] VITALS: BP 151/74; PULSE 51; RESP 18; TEMP 36.7; O2SAT 99
[2022-06-04 19:16] VITALS: O2SAT 99
[2022-06-04 19:18] LABS: Influenza A QL RT-PCR Negative (Negative); Influenza B QL RT-PCR Negative (Negative); RSV RNA, RT-PCR Negative (Negative); SARS-CoV-2 RNA PCR Negative
--- NOTE | 2022-06-04 19:45 | ED.GENADULT ---
HPI - General Adult General Chief complaint: Upper Respiratory Infection Stated complaint: Covid+ Time Seen by Provider: 06/04/22 19:41 History of Present Illness HPI narrative: Patient is a 72-year-old female who presents emergency department with chief complaint of nausea and possible COVID exposure. Patient reports that her started having upper respiratory symptoms yesterday and tested positive for COVID-19 today. Patient states that she is scheduled to have a pacemaker placed for bradycardia tomorrow and is the first case for Dr. Baptiste patient reports that currently symptoms right now are that she feels a little tired and that she has some mild nausea. The patient denies fever denies vomiting. Patient reports that she has issues with chronic bradycardia. Related Data Home Medications Medication Instructions Recorded Confirmed d-mannose 500 mg capsule 500 mg PO DAILY 08/30/20 06/02/22 Align 1 tablet PO BID 10/19/21 06/02/22 Pataday Once Daily Relief 2.5 ml EACH EYE DAILY 10/19/21 06/02/22 biotin 10,000 mcg PO DAILY 10/19/21 06/02/22 d-mannose 1,300 mg PO DAILY 10/19/21 05/02/22 Allergies Allergy/AdvReac Type Severity Reaction Status Date / Time cefuroxime Allergy Mild Rash Verified 06/04/22 19:16 ciprofloxacin Allergy Mild RASH Verified 06/04/22 19:16 nitrofurantoin Allergy Mild Hives / Verified 06/04/22 19:16 Red Face Review of Systems Review of Systems: A 10 system review of systems was completed on the patient and is negative except for what is stated in the HPI. Nursing and ancillary documentation was reviewed. [facility] Past Medical History Medical History Adenomatous colon polyp 2020, repeat in 2025 Allergies Bilateral pes planus Chronic anemia Encounter for screening colonoscopy MDD (major depressive disorder) Neuropathy, sacral plexus Perforated ulcer PUD (peptic ulcer disease) Thalassemia, beta Surgical History Surgical History H/O gastric bypass History of cholecystectomy History of hysteroscopy History of Dariel fundoplication Hx of endoscopy Hx of LASIK Family History Family History Father Lung cancer Mother Cerebrovascular accident Gout Sibling CJD (Creutzfeldt-Russ disease) Gout Other Thalassemia, beta Social History Social History Social History: Smoking packs per day: 2 Smoking cigarettes per day: 40.0 Years smoked: 20 Smoking pack-years: 40.00 Smoking status: Former smoker Tobacco type: cigarettes Second hand tobacco smoke exposure: No Smoking end date: 03/16/94 Alcohol intake: never Substance use: never Substance use type: does not use Living arrangements: with family Additional living arrangements comments: lives with spouse Occupation/Education: retired Gender identity (if verbalized by the patient): Female Sexual Orientation (if Verbalized by the Patient): Straight or Heterosexual Spiritual care concerns: No Course Course Emergency Course: Patient is currently not symptomatic other than mild nausea. The patient is afebrile vital signs are stable the patient is currently testing not detected for COVID-19 The case was discussed with Dr. Echavarria of the cardiology service who recommended the patient calling first thing in the morning to the [facility] to notify them that her has tested positive Vital Signs Vital signs: Vital Signs Temperature 36.7 C 06/04/22 18:31 Pulse Rate 51 L 06/04/22 18:31 Respiratory Rate 18 06/04/22 18:31 Blood Pressure 151/74 H 06/04/22 18:31 Pulse Oximetry 99 06/04/22 18:31 Oxygen Delivery Room Air 06/04/22 18:31 Temperature 36.7 C 06/04/22 18:31 Pulse Rate 51 L 06/04/22 18:31 Res
[2022-06-04 20:34] VITALS: BP 151/85; PULSE 59; RESP 17; O2SAT 100
== END 2022-06-04 20:37 | disposition home or self-care (01) ==
PROVIDERS: Emergency Medicine; Emergency Provider Emergency Medicine; PCP Family Medicine
DX: J06.9 Acute upper respiratory infection, unspecified (principal); Z20.822 Contact with and (suspected) exposure to COVID-19; R00.1 Bradycardia, unspecified; D56.1 Beta thalassemia; G54.1 Lumbosacral plexus disorders; Z87.11 Personal history of peptic ulcer disease; Z98.84 Bariatric surgery status; Z87.891 Personal history of nicotine dependence
CPT/HCPCS: 87637; 99283

== ENCOUNTER 2022-06-21 00:57 | Day surgery (SDC) | payer MEDICARE, OTHER, SELFPAY ==
[2022-06-02 13:13] VITALS: BMI 32.3
[2022-06-21] VITALS (15 sets, daily range): BP systolic 117–157; BP diastolic 69–93; PULSE 50–96; RESP 10–22; TEMP 36.6–36.8; O2SAT 95–100; BMI 32.5
--- NOTE | ~2022-06-21 | XR_ITS ---
EXAMINATION: XR chest 1V portable DATE: 06/21/2022 12:31 INDICATION: Pacer placement. TECHNIQUE: A single frontal view of the chest was obtained. COMPARISON: Chest 2 views 10/19/2021 FINDINGS: Calcified left lung nodules are consistent with old granulomatous disease. No pleural effus ion or pneumothorax. The heart size is normal. There is a left chest wall pacer with leads in the rig ht atrium and right ventricle. IMPRESSION: 1. No acute cardiopulmonary disease. Reviewed, dictated and finalized at location A. OPHYSIOLOGIST
--- NOTE | 2022-06-21 07:00 | ECG_ITS ---
Measurements Intervals [place] Rate: 57 P: 38 AR: 156 QRS: -15 QRSD: 71 T: 59 QT: 409 QTc: 398 Interpretive Statements SINUS BRADYCARDIA DELAYED PRECORDIAL R/S TRANSITION BORDERLINE ST-T WAVE ABNORMALITY- HIGH LATERAL LEADS BASELINE ARTIFACT- I, II, AVR, AVL, AVF BORDERLINE ECG COMPARED TO ECG 10/19/2021 05:07:16 ST-T WAVE ABNORMALITY NOW PRESENT Electronically Signed On 06-21-2022 8:36:30 CRUDE TESTER by Marcelino Alexis D.O.
[2022-06-21 07:21] LABS: Basophils Percent Auto 0.3 % (0.2-1.2); Eosinophils Absolute Auto 0.3 K/mm3 (0-0.3); Eosinophils Percent Auto 4.5 % (0-4.4); Hematocrit 36.1 % (37.0-47.0); Hemoglobin 11.1 g/dL (12.0-15.0); Immature Granulocyte Absolute 0.01 K/mm3 (0.00-0.031); Immature Granulocyte Percent A 0.2 % (0-0.5); Lymphocytes Absolute Auto 1.78 K/mm3 (0.9-3.2); Lymphocytes Percent Auto 30.5 % (18.3-44.2); Mean Corpuscular HGB Conc 30.7 g/dl (32-36); Mean Corpuscular Hemoglobin 20.1 pg (26-34); Mean Corpuscular Volume 65.3 fl (80-100); Mean Platelet Volume 10.5 fl (7.4-10.4); Monocytes Absolute Auto 0.5 K/mm3 (0.1-0.6); Monocytes Percent Auto 8.2 % (2.6-8.5); Neutrophils Absolute Auto 3.3 K/mm3 (1.3-6.7); Neutrophils Percent Auto 56.3 % (45.5-73.1); Platelet Count Result 251 k/mm3 (150-375); Red Blood Count 5.53 M/mm3 (4.2-5.4); Red Cell Distribution Width 16.2 % (11.5-14.5); White Blood Count 5.8 K/mm3 (4.5-10.0)
[2022-06-21 07:31] LABS: Anion Gap 7 mmol/L (8-16); Blood Urea Nitrogen 17 mg/dL (7-17); Calcium 8.9 mg/dL (8.4-10.2); Carbon Dioxide 26 mmol/L (22-30); Chloride 104 mmol/L (98-107); Estimated CRCL calculation 65 ml/min; Estimated Glomerular Filt Rate > 60; Glucose 102 mg/dL (65-110); Sodium 137 mmol/L (137-145)
[2022-06-21 07:40] LABS: Hypochromasia 1+ (NORMAL); Platelet Estimate Adequate (Adequate)
[2022-06-21 07:41] LABS: Microcytosis 2+ (NORMAL); Poikilocytosis 1+ (NORMAL); Schistocytes None Seen (NORMAL)
[2022-06-21 07:51] LABS: Prothrombin Time 12.9 Seconds (11.1-14.7)
--- NOTE | 2022-06-21 08:41 | PM.IMHP ---
H&P: HPI History of Present Illness Date/Time: 06/21/22 08:41 Chief Complaint: Sinus node dysfunction, symptomatic bradycardia Narrative: Thania Oliveira is a 72-year-old female followed by Dr. Echavarria for her bradycardia. She has had progressive problems with fatigue, lightheadedness, dizziness and near-syncope. Her is noted transient loss of consciousness while sitting in a chair. Monitoring has shown that her symptoms corresponded with symptomatic bradycardia. Otherwise normal left ventricular function and no evidence of any other heart disease as an diastolic dysfunction. The patient is feeling well today with no fevers or evidence of infection. She has been NPO. She is right-handed and has had no history of clavicular fracture. Not on any anticoagulants. Review of Systems Review of Systems: No fevers, chills, cough, recent infections, chest pain, BAZZI, abdominal problems, kidney problems, or edema. The patient does have CT, lightheadedness, and weakness as well as presyncope. [facility] Past Medical History Medical History (Updated 06/21/22 @ 08:46 by Marychuy Duval MD) Adenomatous colon polyp 2020, repeat in 2025 Allergies Bilateral pes planus Chronic anemia Encounter for screening colonoscopy MDD (major depressive disorder) Neuropathy, sacral plexus Perforated ulcer PUD (peptic ulcer disease) Sinus node dysfunction Thalassemia, beta Surgical History Surgical History H/O gastric bypass History of cholecystectomy History of hysteroscopy History of Dariel fundoplication Hx of endoscopy Hx of LASIK Family History Family History Father Lung cancer Mother Cerebrovascular accident Gout Sibling CJD (Creutzfeldt-Russ disease) Gout Other Thalassemia, beta Social History Social History Social History: Smoking packs per day: 2 Smoking cigarettes per day: 40.0 Years smoked: 20 Smoking pack-years: 40.00 Smoking status: Former smoker Tobacco type: cigarettes Second hand tobacco smoke exposure: No Smoking end date: 03/16/94 Alcohol intake: never Substance use: never Substance use type: does not use Living arrangements: with family Additional living arrangements comments: lives with spouse Occupation/Education: retired Gender identity (if verbalized by the patient): Female Sexual Orientation (if Verbalized by the Patient): Straight or Heterosexual Spiritual care concerns: No Meds Home Medications and Allergies Home Medications Medication Instructions Recorded Confirmed Type Align 1 tablet PO DAILY 10/19/21 06/20/22 History Pataday Once Daily Relief 2.5 ml EACH EYE DAILY 10/19/21 06/21/22 History biotin 10,000 mcg PO DAILY 10/19/21 06/02/22 History d-mannose 1,300 mg PO DAILY 10/19/21 06/21/22 History azelastine 137 mcg (0.1 %) nasal 137 mcg (0.137 mL) intranasal Q12H 11/28/21 06/21/22 Rx spray aerosol #10 mL fluticasone propionate 50 2 spray intranasal DAILY #16 grams 11/28/21 06/21/22 Rx mcg/actuation nasal spray,suspension fluoxetine 40 mg capsule (Prozac) 40 mg PO DAILY #90 caps 11/30/21 06/21/22 Rx ezetimibe 10 mg tablet (Zetia) 10 mg PO DAILY #90 tabs 06/12/22 06/20/22 Rx fexofenadine 180 mg tablet 180 mg PO DAILY #90 tabs 06/12/22 06/21/22 Rx omeprazole 40 mg capsule,delayed 40 mg PO DAILY 06/20/22 06/21/22 History release Allergies Allergy/AdvReac Type Severity Reaction Status Date / Time cefuroxime Allergy Mild Rash Verified 06/20/22 16:41 ciprofloxacin Allergy Mild RASH Verified 06/20/22 16:41 nitrofurantoin Allergy Mild Hives / Verified 06/20/22 16:41 Red Face Vital Signs Vital Signs - 24 hr 06/21/22 06:55 Temperature 97.9 F Pulse Rate 50 L Respiratory Rate 10 L Blood Pressure 147/85 H Pulse Oximetry 100 Oxygen Delivery R
--- NOTE | 2022-06-21 08:48 | WPDMODSED ---
Moderate Sedation Note-Pt Data Patient Data Diagnosis: Sinus node dysfunction, symptomatic bradycardia Present Complaint: Thania Oliveira? is a 72-year-old? female followed by Dr. Echavarria for her bradycardia.? She has had progressive problems with fatigue, lightheadedness, dizziness and near-syncope.? Her is noted transient loss of consciousness while sitting in a chair.? Monitoring has shown that her symptoms corresponded with symptomatic bradycardia.? ? Otherwise normal? left ventricular function and no evidence of any other heart disease as an diastolic dysfunction. Procedure to be performed/Plan: conscious sedation venogram Implantation of a permanent dual-chamber pacemaker Allergies Allergy/AdvReac Type Severity Reaction Status Date / Time cefuroxime Allergy Mild Rash Verified 06/20/22 16:41 ciprofloxacin Allergy Mild RASH Verified 06/20/22 16:41 nitrofurantoin Allergy Mild Hives / Verified 06/20/22 16:41 Red Face Home Medications Medication Instructions Recorded Confirmed Type Align 1 tablet PO DAILY 10/19/21 06/20/22 History Pataday Once Daily Relief 2.5 ml EACH EYE DAILY 10/19/21 06/21/22 History biotin 10,000 mcg PO DAILY 10/19/21 06/02/22 History d-mannose 1,300 mg PO DAILY 10/19/21 06/21/22 History azelastine 137 mcg (0.1 %) nasal 137 mcg (0.137 mL) intranasal Q12H 11/28/21 06/21/22 Rx spray aerosol #10 mL fluticasone propionate 50 2 spray intranasal DAILY #16 grams 11/28/21 06/21/22 Rx mcg/actuation nasal spray,suspension fluoxetine 40 mg capsule (Prozac) 40 mg PO DAILY #90 caps 11/30/21 06/21/22 Rx ezetimibe 10 mg tablet (Zetia) 10 mg PO DAILY #90 tabs 06/12/22 06/20/22 Rx fexofenadine 180 mg tablet 180 mg PO DAILY #90 tabs 06/12/22 06/21/22 Rx omeprazole 40 mg capsule,delayed 40 mg PO DAILY 06/20/22 06/21/22 History release Current Medications: Active Medications Vancomycin HCl (Vancomycin 2,000 Mg/D5w 500 Ml) 2,000 mg in 500 mls @ 250 mls/hr IVPB ONCE ONE Stop: 06/21/22 09:59 Sedation/Anesthesia: No previous sedation/anesthesia problems (including family history). [facility] Past Medical History Medical History (Updated 06/21/22 @ 08:46 by Marychuy Duval MD) Adenomatous colon polyp 2020, repeat in 2025 Allergies Bilateral pes planus Chronic anemia Encounter for screening colonoscopy MDD (major depressive disorder) Neuropathy, sacral plexus Perforated ulcer PUD (peptic ulcer disease) Sinus node dysfunction Thalassemia, beta Surgical History Surgical History H/O gastric bypass History of cholecystectomy History of hysteroscopy History of Dariel fundoplication Hx of endoscopy Hx of LASIK Family History Family History Father Lung cancer Mother Cerebrovascular accident Gout Sibling CJD (Creutzfeldt-Russ disease) Gout Other Thalassemia, beta Social History Social History Social History: Smoking packs per day: 2 Smoking cigarettes per day: 40.0 Years smoked: 20 Smoking pack-years: 40.00 Smoking status: Former smoker Tobacco type: cigarettes Second hand tobacco smoke exposure: No Smoking end date: 03/16/94 Alcohol intake: never Substance use: never Substance use type: does not use Living arrangements: with family Additional living arrangements comments: lives with spouse Occupation/Education: retired Gender identity (if verbalized by the patient): Female Sexual Orientation (if Verbalized by the Patient): Straight or Heterosexual Spiritual care concerns: No Mod Sed Physical Exam Physical Exam Pre Procedural Exam: Normal: Appearance, Eyes, Ears, Nose, Neck, Throat, Airway, Lungs, Heart Size, Heart Rate, Heart Rhythm, Neuro Exam, Abdomen, Extremities and Skin ( left prepectoral area has no lesions) Hours since solid foods: 12 H
--- NOTE | 2022-06-21 11:28 | PM.OP ---
Procedure Note - Brief Procedure Note - Brief Date of procedure: 06/21/22 Pre-op diagnosis: symptomatic bradycardia Post-op diagnosis: Other (s/p dual chamber Biotronik pacemaker) Description of procedure: Successful implant of a dual chamber pacemaker Surgeon: Marychuy Duval MD Complications: No immediate complications Condition: Stable Disposition: Observation
--- NOTE | 2022-06-21 11:30 | ECG_ITS ---
Measurements Intervals [place] Rate: 62 P: 170 WI: 192 QRS: -22 QRSD: 60 T: 36 QT: 394 QTc: 403 Interpretive Statements ELECTRONIC ATRIAL PACEMAKER LOW QRS VOLTAGE IN PRECORDIAL LEADS CANNOT RULE OUT SEPTAL INFARCT, AGE INDETERMINATE BASELINE ARTIFACT- I, III, AVR, AVL, V2 ABNORMAL ECG COMPARED TO ECG 06/21/2022 07:24:14 ELECTRONIC ATRIAL PACEMAKER NOW PRESENT Electronically Signed On 06-21-2022 12:41:20 ENVIRONMENTAL SCIENCE PROGRAM DIRECTOR by Marcelino Alexis D.O.
--- NOTE | 2022-06-21 11:33 | W.PM.PROC2 ---
Procedure Note - Detailed Date of Procedure 06/21/22 Pre-op Diagnosis symptomatic bradycardia Post-op Diagnosis Other (S/p dual chamber Biotronik pacemaker) Procedure Performed PROCEDURE PERFORMED: Conscious sedation Venogram Placement of a permanent dual-chamber pacemaker Surgeon Marychuy Duval MD Anesthesia Local ( with conscious sedation) Indications Thania Oliveira? is a 72-year-old? female followed by Dr. Echavarria for her bradycardia.? She has had progressive problems with fatigue, lightheadedness, dizziness and near-syncope.? Her is noted transient loss of consciousness while sitting in a chair.? Monitoring has shown that her symptoms corresponded with symptomatic bradycardia.? ? Otherwise normal? left ventricular function and no evidence of any other heart disease as an diastolic dysfunction. Description of Procedure SITE: Left prepectoral area MEDICATIONS GIVEN IN GAS APPLIANCE INSTALLER: vancomycin 2 gram IV piggyback CONSCIOUS SEDATION: Assessment: The patient has no history of anesthesia problems. The patient's oropharynx is clear. The patient was deemed to be a good candidate for conscious sedation. The patient had continuous hemodynamic monitoring during the procedure. Start time: 929 a.m. Completion time: 11:21 a.m. Total conscious sedation time: 112 minutes Medications: fentanyl 150 mcg IV push, Versed 4 mg IV push Trained observer: Vikki Godwin RN Outcome: The patient tolerated the procedure well with no complications. PROCEDURE: After informed consent , the patient was brought to the fish hatchery laborer and the left prepectoral area was prepped and draped in usual fashion . A venogram was performed showing the course of the left subclavian vein,which was patent. The patient received preop antibiotic and conscious sedation . The left prepectoral area was anesthetized with lidocaine . Next a skin incision was made and carried down to the prepectoral fascia. Hemostasis was obtained using electrocautery . The pacer pocket was formed. The left subclavian vein was easily accessed with the micropuncture technique, and a J-tipped guide wire was passed into the inferior vena cava under fluoroscopic guidance. The needle was withdrawn. A 2nd wire was introduced in an identical fashion. A 6 Malay safety sheath was passed over the lateral wire, the wire withdrawn, and the right ventricular lead was passed into the inferior vena cava under fluoroscopic guidance . The lead was then prolapsed through the tricuspid valve and advanced into the right ventricular apex. When suitable sensing and pacing thresholds were obtained, it was screwed into place. No extra cardiac stimulation was obtained using 10 volts. The sheath was withdrawn. Next, another 6 Malay safety sheath was passed over the more medial wire, the wire withdrawn, and the right atrial lead was passed into the inferior vena cava under fluoroscopic guidance. Right atrial lead was then pulled back to the level of the right atrium and manipulated into the right atrial appendage . When suitable sensing and pacing thresholds were obtained , it was screwed into place . No extra cardiac stimulation was obtained using 10 volts. The sheath was withdrawn. Both leads were secured to the prepectoral fascia using 2-0 silk over their respective sleeves. The pocket was cleansed with antibiotic containing solution . The pulse generator was introduced into the operative field, and both leads were secured into the generator . A gentle tug showed the leads were securely fastened. The device was introduced into the pocket. Fluorosocopy showed the leads were retracted w/o satisfactory slack, so they were each disconnected from the pulse generator and advanced over a wire. The atrial lead appeared in a different position, suggesting a possible dislodgement, so this was repositioned. Both were reconnected to the pulse generator which was introduced into the pocket. The pulse
[2022-06-21] MEDS: HYDROcodone/acetaminophen (*CRX) 5-325 MG TABLET 1 TAB PO (17:36)
--- NOTE | 2022-06-21 17:50 | SUR.PHASEII ---
DR. MERRILL HERE TO SEE PT. UPDATED DRSunny ON STATUS. HAS BEEN ON BEDREST SINCE ARRIVAL TO [facility] POST PPM. ARM IMMOBILIZER HAS BEEN ON L. ARM TO LIMIT MOVEMENT. ICE PACK HAS BEEN APPLIED OVER INCISION SITE TO CONTROL DISCOMFORT TO PT'S SATISFACTION AND JUST RECEIVED NORCO X 1 AT 1736. AQUACEL DRESSING C/D/I TO L. UPPER CHEST. AREA SURROUNDING DRESSING SOFT, NON REDDENED AND NO SWELLLING. MINIMAL TENDERNESS TO SITE ON PALPATION. HAS RECEIVED 1GM VANCOMYCIN IVPB AT 1630. TOLERATED BEDREST WELL, TOLERATED MEALS WELL. VSS. NOW ASSISTED TO DANGLE BEDSIDE PER OK FROM DR. MERRILL.
--- NOTE | 2022-06-21 18:00 | SUR.PHASEII ---
WALKED TO BATHROOM TO VOID W/ ASSIST. TOLERATED WELL. SITTING IN CHAIR. DR. MERRILL TO BEDSIDE TO SEE PT.
== END 2022-06-21 19:00 | disposition home or self-care (01) ==
PROVIDERS: Internal Medicine Cardiovascular Disease; PCP Family Medicine; Visit Provider Specialist
PROC: 0JH606Z Insertion of Pacemaker, Dual Chamber into Chest Subcutaneous Tissue and Fascia, Open Approach (ICD-10-PCS; CPT 33208; principal; 2022-06-21 08:30)
DX: I49.5 Sick sinus syndrome (principal); Z98.84 Bariatric surgery status; Z87.891 Personal history of nicotine dependence
CPT/HCPCS: 33208; 36415; 71045; 80048; 85025; 85610; 93005; A9270; C1779; C1785; J2250; J3010; J3370; J7040

== ENCOUNTER 2022-06-28 06:43 | Outpatient (CLI) | payer MEDICARE, OTHER, SELFPAY ==
--- NOTE | ~2022-06-28 | XR_ITS ---
EXAMINATION: XR chest 2V DATE: 06/28/2022 07:09 INDICATION: Cardiac pacemaker placement TECHNIQUE: PA and lateral views of the chest were obtained. COMPARISON: Chest radiograph dated 06/21/2022 FINDINGS: Couple small calcified nodule at the left costophrenic angle consistent with old granulomatous diseas e. No other airspace opacities, pulmonary edema, pleural effusion or pneumothorax. The cardiomediasti nal silhouette is normal. Dual lead pacemaker seen with leads projecting over the expected locations of the right atrium and right ventricle. Cholecystectomy clips at the right upper quadrant. IMPRESSION: 1. No acute cardiopulmonary disease. Reviewed, dictated and finalized at location A.
== END 2022-06-28 06:44 | disposition home or self-care (01) ==
LOC: ANHIMG 06:47
PROVIDERS: PCP Family Medicine; Visit Provider Internal Medicine Cardiovascular Disease
DX: Z95.0 Presence of cardiac pacemaker (principal)
CPT/HCPCS: 71046

== ENCOUNTER 2022-08-16 09:17 | Outpatient (CLI) | payer MEDICARE, OTHER, SELFPAY ==
--- NOTE | ~2022-08-16 | XR_ITS ---
Cervical Spine: AP, lateral, open-mouth views Clinical History: Pain Findings: There is straightening of the normal cervical lordosis. Minimal grade 1 anterolisthesis of C3 over C4 present, and of C4 over C5. There is moderate degenerative disc narrowing at C5-C6 and C6- C7. There is moderate facet arthropathy at C3-C4 and C4-C5, especially on the left side. Pre-vertebra l soft tissues are unremarkable. Impression: Minimal grade 1 anterolisthesis of C3 over C4, and of C4 over C5. Additional mild to mild/moderate degenerative spondylosis, as above. Reviewed, dictated and finalized at location M. Impression: Minimal grade 1 anterolisthesis of C3 over C4, and of C4 over C5. Additional mild to mild/moderate degenerative spondylosis, as above.
== END 2022-08-16 09:18 | disposition home or self-care (01) ==
PROVIDERS: PCP Family Medicine; Visit Provider Nurse Practitioner Gerontology
DX: M47.892 Other spondylosis, cervical region (principal)
CPT/HCPCS: 72050

== ENCOUNTER 2022-12-26 15:44 | Outpatient (CLI) | payer MEDICARE, OTHER, SELFPAY ==
--- NOTE | ~2022-12-26 | MM_ITS ---
EXAMINATION: MM screening basil BI w ute HISTORY: Screening mammogram TECHNIQUE: Craniocaudal and mediolateral oblique 3-D tomosynthesis images were obtained and synthetic 2-D images were generated. CAD analysis was submitted and interpreted. COMPARISON: , 08/13/2020 bilateral screening mammogram examinations BREAST PARENCHYMAL COMPOSITION: There are scattered areas of fibroglandular density. FINDINGS: There is no evidence of suspicious mass, calcification, or architectural distortion to sugg est malignancy in either breast. There has been no suspicious interval change. IMPRESSION: 1. No mammographic evidence of malignancy. 2. Recommend routine screening mammography in one year. BI-RADS Category 1: Negative Reviewed, dictated and finalized at location A.
== END 2022-12-26 15:45 | disposition home or self-care (01) ==
PROVIDERS: PCP Family Medicine; Visit Provider Family Medicine
DX: Z12.31 Encounter for screening mammogram for malignant neoplasm of breast (principal)
CPT/HCPCS: 77063; 77067

== ENCOUNTER 2023-04-24 07:27 | Outpatient (CLI) | payer MEDICARE, OTHER, SELFPAY ==
--- NOTE | ~2023-04-24 | XR_ITS ---
XR abdomen/kub 1V DATE: 04/24/2023 08:07 INDICATION: Right flank pain TECHNIQUE: 2 AP views of the abdomen COMPARISON: May 22, 2018 CTA chest abdomen pelvis FINDINGS: Surgical clips, right upper quadrant consistent with cholecystectomy. Radiopaque sutures in the left upper quadrant and left lower abdomen. Right ventricular pacemaker lead. The psoas shadows are intact. No visceromegaly is detected. There is a prominent amount fecal material within the colon but no evidence of bowel obstruction. IMPRESSION: Status post cholecystectomy and gastric bypass surgery No urinary tract calculus is evident Moderately prominent amount of fecal material in the colon; no bowel obstruction Reviewed, dictated and finalized at Location A. Reviewed, dictated and finalized at location L. D MARKETING SPECIALIST IMPRESSION: Status post cholecystectomy and gastric bypass surgery No urinary tract calculus is evident Moderately prominent amount of fecal material in the colon; no bowel obstructio n
[2023-04-24 08:37] LABS: Basophils Percent Auto 0.7 % (0.2-1.2); Eosinophils Absolute Auto 0.3 K/mm3 (0-0.3); Eosinophils Percent Auto 6.2 % (0-4.4); Hematocrit 37.5 % (37.0-47.0); Hemoglobin 11.2 g/dL (12.0-15.0); Immature Granulocyte Absolute 0.01 K/mm3 (0.00-0.031); Immature Granulocyte Percent A 0.2 % (0-0.5); Lymphocytes Absolute Auto 1.73 K/mm3 (0.9-3.2); Lymphocytes Percent Auto 32.3 % (18.3-44.2); Mean Corpuscular HGB Conc 29.9 g/dl (32-36); Mean Corpuscular Volume 66.8 fl (80-100); Mean Platelet Volume 9.9 fl (7.4-10.4); Monocytes Absolute Auto 0.4 K/mm3 (0.1-0.6); Neutrophils Absolute Auto 2.8 K/mm3 (1.3-6.7); Neutrophils Percent Auto 52.6 % (45.5-73.1); Platelet Count Result 254 k/mm3 (150-375); Red Blood Count 5.61 M/mm3 (4.2-5.4); Red Cell Distribution Width 17.9 % (11.5-14.5); White Blood Count 5.4 K/mm3 (4.5-10.0)
[2023-04-24 08:37] LABS: Appearance Urine Clear (Clear); Bacteria Urine None Seen /hpf; Bilirubin Urine Negative (Negative); Blood Urine Negative (Negative); Color Urine Yellow (Yellow); Glucose Urine UA Negative (Negative); Ketones Urine Negative (Negative); Leukocyte Esterase Ur Trace LEU/UL (Negative); Nitrate Urine Negative (Negative); Non Pathogenic Casts 0-2; Protein Urine Negative (Negative); RBC Urine 0-2 /hpf (0-2); Squamous Epithelial Cell Urine None seen /hpf (Few); Urobilinogen Urine 0.2 mg/dL (<2.0)
[2023-04-24 08:40] LABS: Add Urine Microscopic? YES
[2023-04-24 08:55] LABS: Alanine Aminotransferase 18 U/L (6-35); Albumin Level 4.1 g/dL (3.5-5.1); Alkaline Phosphatase 60 U/L (38-126); Anion Gap 6 mmol/L (8-16); Aspartate Amino Transferase 27 U/L (14-36); Bilirubin,Total 0.7 mg/dL (0.2-1.3); Blood Urea Nitrogen 21 mg/dL (7-17); Calcium 8.9 mg/dL (8.4-10.2); Carbon Dioxide 30 mmol/L (22-30); Chloride 105 mmol/L (98-107); Cholesterol 210 mg/dL (0-200); Estimated Glomerular Filt Rate > 60; Glucose 90 mg/dL (65-110); HDL Direct 63 mg/dL; Potassium 3.9 mmol/L (3.4-5.0); Sodium 141 mmol/L (137-145); Triglycerides 74 mg/dL (<150)
[2023-04-24 08:56] LABS: Iron 67 ug/dL (37-170)
[2023-04-24 09:06] LABS: LDL Cholesterol Direct 109 mg/dL
[2023-04-24 09:14] LABS: Percent Iron Saturation 19 % (20-50)
[2023-04-28 12:12] LABS: Vitamin D 1,25 (OH)2 Total 41 pg/mL (18-72); Vitamin D2 1,25 (OH)2 <8 pg/mL; Vitamin D3 1,25 (OH)2 41 pg/mL
== END 2023-04-24 07:28 | disposition home or self-care (01) ==
LOC: ANHLAB 07:34
PROVIDERS: PCP Family Medicine; Visit Provider Family Medicine
DX: E78.2 Mixed hyperlipidemia (principal); R30.0 Dysuria; D56.3 Thalassemia minor; E55.9 Vitamin D deficiency, unspecified; Z98.84 Bariatric surgery status
CPT/HCPCS: 36415; 74018; 80053; 80061; 81001; 82652; 83540; 83550; 85025; 87086

== ENCOUNTER 2024-01-16 14:43 | Outpatient (CLI) | payer MEDICARE, OTHER, SELFPAY ==
--- NOTE | ~2024-01-16 | MM_ITS ---
EXAMINATION: MM screening [facility] BI w ute HISTORY: Screening TECHNIQUE: Craniocaudal and mediolateral oblique 3-D tomosynthesis images were obtained and synthetic 2-D images were generated. CAD analysis was submitted and interpreted. COMPARISON: Comparison to multiple prior studies sequentially, with oldest reviewed study dated 03/16. BREAST PARENCHYMAL COMPOSITION: Not dense: There are scattered areas of fibroglandular density. FINDINGS: There is a developing cluster of calcifications in the upper outer quadrant of the left [place] ast, posterior third. The right breast is stable without evidence for malignancy. IMPRESSION: 1. Developing cluster of left breast calcifications. 2. Magnification views are recommended. BI-RADS Category 0: Incomplete: Needs additional imaging evaluation. Reviewed, dictated and finalized at location B.
== END 2024-01-16 14:44 | disposition home or self-care (01) ==
LOC: ANHIMG 14:46
PROVIDERS: PCP Family Medicine; Visit Provider Family Medicine
DX: Z12.31 Encounter for screening mammogram for malignant neoplasm of breast (principal); R92.8 Other abnormal and inconclusive findings on diagnostic imaging of breast
CPT/HCPCS: 77063; 77067

== ENCOUNTER 2024-01-18 11:52 | Emergency (ER) | payer MEDICARE, OTHER, SELFPAY ==
--- NOTE | ~2024-01-18 | XR_ITS ---
Portable chest x-ray Comparison: 06/28/2022 Clinical History: Dizziness Findings: Lungs are clear, without focal consolidation or pleural effusion. Cardiomediastinal silho uette is stable, with pacemaker device. Bones and soft tissues are unremarkable. Impression: Clear lungs. Reviewed, dictated and finalized at location . Impression: Clear lungs.
--- NOTE | ~2024-01-18 | CT_ITS ---
Non-contrast Head CT History: Dizziness COMPARISON: 10/19/2021 Technique: Axial non-contrast imaging of the brain was performed. Dose reduction technique was used on this scan by utilizing automated exposure control and iterative reconstruction technique. The dose -length product (DLP) was 605.33 mGy-cm. Findings: There is no evidence of intracranial hemorrhage, mass lesion, or acute infarct. Brain par enchyma appears normal. The ventricles and subarachnoid spaces are normal in size. The calvarium ap pears normal. The visualized paranasal sinuses and mastoid air cells are clear. Impression: No significant abnormality seen. Reviewed, dictated and finalized at location . Impression: No significant abnormality seen.
--- NOTE | 2024-01-18 12:01 | ECG_ITS ---
Test Date: 2024-01-18 12:03:59 Measurements Intervals [place] Rate: 70 P: 213 IA: 182 QRS: -17 QRSD: 73 T: 41 QT: 397 QTc: 430 Interpretive Statements ELECTRONIC ATRIAL PACEMAKER POSSIBLE ANTERIOR MYOCARDIAL INFARCTION , OF INDETERMINATE AGE [30 ms Q WAVE IN V3/V4, OR R < 0.2 mV IN V4] No previous ECG available for comparison Electronically Signed On 01-18-2024 13:13:42 CDT by Lexx Pickard M.D.
[2024-01-18 12:02] VITALS: BP 160/110; PULSE 68; RESP 16; O2SAT 99
--- NOTE | 2024-01-18 12:09 | ED.DIZZY ---
HPI - Dizziness General Chief Complaint: Dizziness Stated Complaint: dizziness Time Seen by Provider: 01/18/24 12:07 Source: patient History of Present Illness HPI Narrative: 73 YEARS OLD WHITE FEMALE CAME TO THE EMERGENCY ROOM BY PRIVATE CAR COMPLAINING OF SUDDEN ONSET OF A POP LIKE FEELING IN THE RIGHT SIDE OF THE HEAD LASTED FOR 2ND FOLLOWED BY A LOT OF POSTNASAL DISCHARGE. PATIENT IS TELLING ME THAT SHE BEEN COUGHING FOR ALMOST 1 MONTH WAS POSTNASAL DISCHARGE, GOT IT FROM HER GRANDDAUGHTER. PATIENT REPORTS THAT AFTER THE POP FEELING START HAVING EVERYTHING SPINNING MAINLY WHEN SHE TILTS HER HEAD BACKWARD ASSOCIATED WITH NAUSEA AND DIAPHORESIS. SHE DENIES ANY CHEST PAIN OR SHORTNESS OF BREATH OR HEADACHE OR FOCAL NEURO DEFICIT. PATIENT DENIED HAVING SIMILAR SYMPTOMS IN THE PAST. HISTORY OF HYPERLIPIDEMIA, CURRENTLY ON BABY ASPIRIN ONCE A DAY. PATIENT IS TELLING ME THAT HER SYMPTOM IS IMPROVING Related Data Home Medications Medication Instructions Recorded Confirmed Align 1 tablet PO DAILY 10/19/21 08/28/23 Pataday Once Daily Relief 2.5 ml EACH EYE DAILY 10/19/21 08/28/23 biotin 10,000 mcg PO DAILY 10/19/21 08/28/23 d-mannose 1,300 mg PO DAILY 10/19/21 08/28/23 Allergies Allergy/AdvReac Type Severity Reaction Status Date / Time cefuroxime Allergy Mild Rash Verified 01/18/24 12:15 nitrofurantoin Allergy Mild Hives / Verified 01/18/24 12:15 Red Face Review of Systems Review of Systems: All systems reviewed & are unremarkable except as noted in HPI and below PMFSH Past Medical History Medical History Adenomatous colon polyp 2020, repeat in 2025 Allergies Bilateral pes planus Chronic anemia Encounter for screening colonoscopy MDD (major depressive disorder) Neuropathy, sacral plexus Perforated ulcer PUD (peptic ulcer disease) Sinus node dysfunction Thalassemia, beta Surgical History Surgical History H/O gastric bypass History of cholecystectomy History of hysteroscopy History of Dariel fundoplication Hx of endoscopy Hx of LASIK S/P cardiac pacemaker procedure Biotronik 06/21/2022 for sinus node dysfunction Family History Family History Father Lung cancer Mother Cerebrovascular accident Gout Sibling CJD (Creutzfeldt-Russ disease) Gout Other Thalassemia, beta Social History Social History Social History: Smoking packs per day: 2 Smoking cigarettes per day: 40.0 Years smoked: 20 Smoking pack-years: 40.00 Smoking status: Former smoker Tobacco type: cigarettes Second hand tobacco smoke exposure: No Smoking end date: 03/16/94 Alcohol intake: never Substance use: never Substance use type: does not use Do You Feel Safe in your Home?: Yes Lack of Transportation: No Lack of Food: Never True Current Housing: I Have Housing Concerned About Future Housing: No Difficulty Paying Gas/Electric Bills: No Difficulty Paying for Meds: No Currently Unemployed: YES Education: Don't Know Difficulty w/ Childcare or Family Care: No Living arrangements: with family Occupation/Education: retired Gender identity (if verbalized by the patient): Female Sexual Orientation (if Verbalized by the Patient): Straight or Heterosexual Spiritual care concerns: No Exam Narrative: GENERAL APPEARANCE: WELL-DEVELOPED, WELL-NOURISHED, dry heaving SKIN: NORMAL COLOR HEAD: NORMOCEPHALIC, NONTRAUMATIC EYES: CLEAR CONJUNCTIVA ENT: OROPHARYNX NORMAL, EARS NORMAL, NOSE NORMAL NECK: SUPPLE, NONTENDER CHEST AND RESPIRATORY: AIRWAY PATENT, NO RESPIRATORY DISTRESS, NO ACCESSORY MUSCLE USE HEART: REGULAR RATE/RHYTHM ABDOMEN: SOFT, NONTENDER, NO ORGANOMEGALY, QUIET BOWEL SOUNDS VASCULAR: NORMAL PERIPHERAL PULSES, NORMAL CAPILLARY REFILL. MUSCULOSKELETAL: NO
[2024-01-18 12:31] LABS: Basophils Percent Auto 0.6 % (0.2-1.2); Eosinophils Absolute Auto 0.3 K/mm3 (0-0.3); Eosinophils Percent Auto 4.1 % (0-4.4); Hematocrit 38.6 % (37.0-47.0); Hemoglobin 12.1 g/dL (12.0-15.0); Immature Granulocyte Absolute 0.01 K/mm3 (0.00-0.031); Immature Granulocyte Percent A 0.1 % (0-0.5); Lymphocytes Absolute Auto 1.62 K/mm3 (0.9-3.2); Lymphocytes Percent Auto 23.8 % (18.3-44.2); Mean Corpuscular HGB Conc 31.3 g/dl (32-36); Mean Corpuscular Hemoglobin 20.5 pg (26-34); Mean Corpuscular Volume 65.5 fl (80-100); Mean Platelet Volume 10.6 fl (7.4-10.4); Monocytes Absolute Auto 0.5 K/mm3 (0.1-0.6); Monocytes Percent Auto 7.1 % (2.6-8.5); Neutrophils Absolute Auto 4.4 K/mm3 (1.3-6.7); Neutrophils Percent Auto 64.3 % (45.5-73.1); Platelet Count Result 271 k/mm3 (150-375); Red Blood Count 5.89 M/mm3 (4.2-5.4); Red Cell Distribution Width 17.5 % (11.5-14.5); White Blood Count 6.8 K/mm3 (4.5-10.0)
[2024-01-18 12:41] LABS: Alanine Aminotransferase 23 U/L (6-35); Albumin Level 4.7 g/dL (3.5-5.1); Alkaline Phosphatase 75 U/L (38-126); Anion Gap 10 mmol/L (4-12); Aspartate Amino Transferase 28 U/L (14-36); Bilirubin,Total 0.6 mg/dL (0.2-1.3); Blood Urea Nitrogen 14 mg/dL (7-17); Calcium 9.4 mg/dL (8.4-10.2); Carbon Dioxide 26 mmol/L (22-30); Chloride 104 mmol/L (98-107); Estimated CRCL calculation 65 ml/min; Estimated Glomerular Filt Rate > 60; Glucose 119 mg/dL (65-110); Potassium 4.3 mmol/L (3.4-5.0); Prothrombin Time 13.6 Seconds (11.1-14.7); Sodium 140 mmol/L (137-145)
[2024-01-18 12:42] LABS: Partial Thromboplastin Time 27.2 Seconds (22.3-36.8)
[2024-01-18 12:53] LABS: Troponin I < 0.012 ng/mL (0.000-0.034)
[2024-01-18] MEDS: ONDANSETRON INJ 4 MG/2 ML VIAL 8 MG IV PUSH (12:55)
[2024-01-18] MEDS: MECLIZINE HCL 25 MG TABLET PO (12:55)
[2024-01-18] MEDS: diazePAM (*CRX) 5 MG TABLET PO (12:55)
[2024-01-18 12:58] VITALS: BP 150/97; PULSE 64; RESP 16; O2SAT 98
[2024-01-18 13:10] LABS: Hypochromasia 2+; Microcytosis 1+ (NORMAL); Platelet Estimate Adequate (Adequate); Schistocytes None Seen
[2024-01-18 13:11] LABS: Atypical Lymphocytes Present
[2024-01-18 13:30] VITALS: BP 140/86; PULSE 64; RESP 16; O2SAT 98
[2024-01-18 13:48] LABS: Influenza A QL RT-PCR Negative (Negative); Influenza B QL RT-PCR Negative (Negative); RSV RNA, RT-PCR Negative (Negative); SARS-CoV-2 RNA PCR Negative (Negative)
[2024-01-18 14:16] LABS: Add Urine Microscopic? YES; Appearance Urine Clear (Clear); Bacteria Urine None Seen /hpf; Bilirubin Urine Negative (Negative); Blood Urine Negative (Negative); Color Urine Yellow (Yellow); Glucose Urine UA Negative (Negative); Ketones Urine Negative (Negative); Leukocyte Esterase Ur Trace LEU/UL (Negative); Nitrate Urine Negative (Negative); Non Pathogenic Casts 0-2; Protein Urine Negative (Negative); RBC Urine 0-2 /hpf (0-2); Specific Grav Ur 1.017 (1.001-1.035); Squamous Epithelial Cell Urine Occasional /hpf (Few); WBC Urine 0-5 /hpf (0-3)
--- NOTE | 2024-01-18 14:31 | PC.NURSE ---
Pt reports resolution of symptoms. Pt denies dizziness. Pt continues to deny any pain.
[2024-01-18 15:45] VITALS: BP 152/97; PULSE 63; RESP 21; TEMP 36.7; O2SAT 100
== END 2024-01-18 15:48 | disposition home or self-care (01) ==
PROVIDERS: Emergency Provider Emergency Medicine; PCP Family Medicine
DX: R42 Dizziness and giddiness (principal); Z20.822 Contact with and (suspected) exposure to COVID-19; E78.5 Hyperlipidemia, unspecified; D64.9 Anemia, unspecified; G54.1 Lumbosacral plexus disorders; Z95.0 Presence of cardiac pacemaker; Z98.84 Bariatric surgery status; Z86.0101 Personal history of adenomatous and serrated colon polyps; Z87.11 Personal history of peptic ulcer disease; Z87.891 Personal history of nicotine dependence; Z90.49 Acquired absence of other specified parts of digestive tract; Z79.899 Other long term (current) drug therapy; Z79.82 Long term (current) use of aspirin; R94.31 Abnormal electrocardiogram [ECG] [EKG]
CPT/HCPCS: 36415; 70450; 71045; 80053; 81001; 84484; 85025; 85610; 85730; 87637; 93005; 96374; 99284; A9270; J2405

== ENCOUNTER 2024-02-01 10:42 | Outpatient (CLI) | payer MEDICARE, OTHER, SELFPAY ==
--- NOTE | ~2024-02-01 | MM_ITS ---
EXAMINATION: MM diagnostic basil LT w ute HISTORY: Left breast calcifications TECHNIQUE: Additional 3-D tomosynthesis images of the left breast were performed and synthetic 2-D im ages were generated. CAD analysis was submitted and interpreted. COMPARISON: Comparison to multiple prior studies sequentially, with oldest reviewed study dated 03/16. BREAST PARENCHYMAL COMPOSITION: Not dense: There are scattered areas of fibroglandular density.. FINDINGS: Clustered calcifications in the upper outer quadrant of the left breast, middle third are r elatively monomorphic and most likely benign. There are no suspicious masses or architectural distort ion. IMPRESSION: 1. Probable benign clustered left breast calcifications. 2. Recommend 6 month follow-up diagnostic left mammogram BI-RADS category 3, probably benign findings. Reviewed, dictated and finalized at location B.
== END 2024-02-01 10:43 | disposition home or self-care (01) ==
LOC: ANHIMG 10:43
PROVIDERS: PCP Family Medicine; Visit Provider Student in an Organized Health Care Education/Training Program
DX: R92.8 Other abnormal and inconclusive findings on diagnostic imaging of breast (principal)
CPT/HCPCS: 77061; 77065; G0279

== ENCOUNTER 2024-07-18 09:15 | Outpatient (CLI) | payer MEDICARE, OTHER, SELFPAY ==
--- OUTSIDE RECORDS SUMMARY | 2024-07-18 09:20 | XMS_ITS | Clinical Summary ---
Author Organization [facility] Address [address] [place] [address] Care Team Providers Care Hse Coordinator Name Role Phone Bebe Callahan MD Primary Care Provider + Source Comments [facility],non-owned Affiliates and Associated Physician Practices is amultiple site organization consisting of ambulatory clinics and hospital sitesin [place], [place], [place] and [place]. This disclosure is being madepursuant to the Care Everywhere program and may not contain all information available regarding this patient. Last updated 18.[facility] Allergies Active Allergy Reactions Criticality Noted Date Comments Nitrofurantoin Urticaria 09/25/2014 Medications * Be aware that medications may not be up to date on this document. Alwaysverify current medications with the patient. Medication Sig Dispensed Refills Start Date End Date Status sertraline (ZOLOFT) 25 MG tablet Take 25 mg by mouth once daily. Active aspirin (ASPIRIN) 325 MG tablet Take 325 mg by mouth once daily. Active esomeprazole (NEXIUM) 40 MG packet Take 40 mg by mouth daily before breakfast. Active ezetimibe (ZETIA) 10 MG tablet Take 10 mg by mouth at bedtime Active montelukast (SINGULAIR) 10 MG tablet Take 10 mg by mouth at bedtime Active fexofenadine (VENESSA) 180 MG tablet Take 180 mg by mouth once daily as needed for Runny Nose or Allergies Active fluticasone propionate (FLONASE) 50 MCG/ACT nasal spray [place] 2 Sprays into each nostril once daily Active imipramine (TOFRANIL) 25 MG tablet Take 25 mg by mouth at bedtime Active multivitamin (OPURITY) CHEW tablet Take 1 Tab by mouth once daily Active Cyanocobalamin (B-12) 1000 MCG CAPS Take by mouth once daily Active Calcium Carbonate-Vitamin D (CALTRATE 600+D PO) Take by mouth once daily Active vitamin D3 (D3-1000) 1000 UNIT capsule Take 1,000 Units by mouth once daily Active B Complex-C (SUPER B COMPLEX PO) Take by mouth once daily Active magnesium 250 MG TABS tablet Take 250 mg by mouth once daily Active vitamin C (ASCORBIC ACID) 1000 MG TABS tablet Take 1,000 mg by mouth once daily Active ferrous sulfate 325 (65 FE) MG tablet Take 325 mg by mouth daily with breakfast Active Imogene-3 Fatty Acids (FISH OIL) 1000 MG CAPS capsule Take by mouth once daily Active melatonin 5 MG CAPS capsule Take 5 mg by mouth at bedtime Active hydrocodone-acetamino phen (NORCO) 5-325 MG tablet Take 1 Tab by mouth every 4 hours as needed for Pain 30 Tab 0 10/13/2014 Active Active Problems No known active problems Social History Tobacco Use Types Packs/Day Years Used Date Smoking Tobacco: Former Cigarettes Q uit: 04/16/1993 Alcohol Use Standard Drinks/Week Comments No 0 (1 standard drink = 0.6 oz pur e alcohol) Sex and Gender Information Value Date Recorded Sex Assigned at Not on file Gender Identity Not on file Sexual Orientation Not on file Last Filed Vital Signs Vital Sign Reading Time Taken Comments Blood Pressure 138/87 10/19/2014 12:24 PM CDT Pulse 70 10/19/2014 12:24 PM CDT Temperature 36.8 C (98.3 F) 10/19/2014 12:24 PM CDT Respiratory Rate 16 10/13/2014 10:11 AM CDT Oxygen Saturation 98% 10/13/2014 10:11 AM CDT Inhaled Oxygen Concentration - - Weight 84.8 kg (187 lb) 10/19/2014 12:24 PM CDT Height 167.6 cm (5' 6 ) 10/19/2014 12:24 PM CDT Body Mass Index 30.18 10/19/2014 12:24 PM CDT Plan of Treatment Health Maintenance Due Date Last Done Comments BONE DENSITY TESTING 1950 [place] (AGES 45-75) - COL ON CA SCREENING 1952 COLON MONITORING 1952 COLONOSCOPY - COLON CA SCREENING 1952 CT COLONOGRAPHY - COLON CA SCREENING 1952 Colorectal Cancer Screening 1952 FIT - COLON CA SCREENING 1952 FLEX SIG - COLON CA SCREENING 1952 LIPID TESTING 1950 MAMMOGRAM 1950 MEDICARE AWV 12 MONTHS 1952 HEPATITIS C SCREENING 05/20/1970 DTAP/TDAP/TD VACCINES (1 - Tdap) 1971 PNEUMOCOCCAL VACCINE 50+ (1 of 1 - PCV) 2002 ZOSTER VACCINE (1 of 2) 2002 COVID-19 VACCINE (1 - 2023-2 5 season) 2023 INFLUENZA VACCINE (#1) 2023 DEPRESSION SCREENING 04/16/2024 Respiratory Syncytial Virus (RSV) Vaccine Pt: or over 60 yrs (1 - 1-dose 75+ series) 2027 HEPATITIS B VACCINE Aged Out No longe r eligible based on patient's age to complete this topic HIB VACCINE Aged Out No longer eligi ble based on patient's age to complete this topic HPV VACCINE Aged Out No longer eligi ble based on patient's age to complete this topic MENINGOCOCCAL (Group B) VACC INE SHARED DECISION-MAKING Aged Out No longer eligibl e based on patient's age to complete this topic MENINGOCOCCAL GROUPS A/C/Y/W VACCINE Aged Out No longer eligible b ased on patient's age to complete this topic Care Teams Hse Coordinator Relationship Specialty Start Date End Date Bebe Callahan MD [address] [place] [address] PCP - General 08/16/21
--- OUTSIDE RECORDS SUMMARY | 2024-07-18 09:20 | XMS_ITS | Referral Summary ---
Author Organization [facility] [address] [facility] [address] [facility] [address] [place] [address] Care Team Providers Care Sr. Vendor Management Associate Name Role Phone Bebe Callahan MD Primary Care Provider Encounters Date Type Department Care Team Description 06/24/2024 7:15 AM CDT Ancillary Procedure [facility] Medical [facility] Cardiology [address] [place] [address] [place] [phone] Paroxysmal atrial fibrillation (HCC) [I48.0] (Primary Dx); Symptomatic bradycardia; Chronotropic incompetence with sinus node dysfunction [I49.8]; Cardiac pacemaker in situ [Z95.0] from Last 3 Months Allergies Active Allergy Reactions Criticality Noted Date Comments Cefuroxime Hives Medium 05/26/2016 House Dust Mold Nitrofurantoin Hives,Anaphylaxis,U rticaria High 09/25/2014 Reaction: Hives, Other reaction(s): Hives Hives Udnglqe-Xij-Dbk Reductase Inhibitors Muscle pain Medium 08/09/2022 Tree And Shrub Pollen Medications D-MANNOSE ORAL Active azelastine 205.5 mcg (0.15 %) spray,non-aeros ol 1 Active fexofenadine (VENESSA) 180 mg tablet fexofenadine 180 mg tablet 7 Active fluticasone propionate (FLONASE) 50 mcg/actuation nasal spray fluticasone propionate 50 mcg/actuation nasal spray,suspension Active ezetimibe (ZETIA) 10 mg tablet Zetia 10 mg tablet 7 Active FLUoxetine (PROzac) 40 mg capsule 1 Active biotin 10,000 mcg capsule 1 Active olopatadine HCl (PATADAY ONCE DAILY RELIEF OPHT) 1 Active omeprazole (PriLOSEC) 40 mg capsule omeprazole 40 mg capsule,delayed release 7 Active aspirin 81 mg enteric coated tablet Take 1 tablet (81 mg total) by mouth daily Active Active Problems Problem Noted Date Diagnosed Date Paroxysmal atrial fibrillation 08/09/2022 H/O syncope 08/09/2022 Mixed hyperlipidemia 08/09/2022 Statin myopathy 08/09/2022 Visit for wound check 06/28/2022 Cardiac pacemaker in situ 06/21/2022 Overview (12/11/2023): [employer] Edora Dual Pacemaker, Dx; Sinus Node Dysfunction, Symptomatic Bradycardia, PAF. DOI 06/21/2022-[facility]. [employer] remote monitoring. 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 Gender Identity Female 02/04/2021 10:35 AM CDT Sexual Orientation Straight 02/04/2021 10 :35 AM CDT Last Filed Vital Signs Vital Sign Reading Time Taken Comments Blood Pressure 120/78 12/18/2023 9:01 AM CDT Pulse 71 12/18/2023 9:01 AM CDT Temperature 36.8 C (98.2 F) 09/08/2016 8:44 AM CDT Respiratory Rate 98 01/17/2022 11:39 AM CDT Oxygen Saturation 99% 12/18/2023 9:01 AM CDT Inhaled Oxygen Concentration - - Weight 93.4 kg (206 lb) 12/18/2023 9:01 AM CDT Height 167.6 cm (5' 6 ) 12/18/2023 9:01 AM CDT Body Mass Index 33.25 12/18/2023 9:01 AM CDT Plan of Treatment Not on file Procedures Procedure Name Priority Date/Time Associated Diagnosis Comments DEVICE CHECK - REMOTE Routine 06/24/2024 5:13 PM CDT Symptomatic bradycardia from Last 3 Months Results * DEVICE CHECK - REMOTE (06/24/2024 5:13 PM CDT) Anatomical Region Laterality Modality Other Narrative 07/04/2024 8:37 AM CDT [employer] Edora Dual Pacemaker, Dx; Sinus Node Dysfunction, Symptomatic Bradycardia, PAF. DOI 06/21/2022-[employer]. [employer] remote monitoring. Routine DDD Pacemaker Remote. Transmission attached. Stable lead impedances, pacing and sensing thresholds. Battery function: Ok, 85% remaining battery life to IFGUEROA. Presenting: AP-VS. AP-72 %, DIESEL SCOOP OPERATOR-0 %. No AT/AF episodes noted,. No Ventricular arrhythmias detected. Medication: ASA 81 mg. Follow up: office pacemaker f/u 11/05/2024. [employer] remote f/u 6 months. Lashon Crabtree, HAYDEN Marychuy Duval MD CV CARDIAC SERVICES PROCEDU RES Final Result from Last 3 Months Insurance MEDICARE FOR LIFE MEDICARE FOR LIFE MEDICARE FOR LIFE Care Teams Sr. Vendor Management Associate Relationship Specialty Start Date End Date Bebe Callahan MD [address] [place] [address] PCP - General Family Medicine 01/11/21
--- OUTSIDE RECORDS SUMMARY | 2024-07-18 09:20 | XMS_ITS | Encounter Summary ---
Author Organization [facility] Address [address] [place] [address] Care Team Providers Care Side Panel Hanger Name Role Phone Bebe Callahan MD Primary Care Provider + Encounter Details Date Type Department Care Team (Late st Contact Info) Description 01/16/2018 Lab Requisition [facility] [address] [facility] [place], [place] [phone] Sandra Cuello MD [address] [facility] 3 [place] [address] Social History Tobacco Use Types Packs/Day Years Used Date Smoking Tobacco: Former Cigarettes Q uit: 04/16/1993 Alcohol Use Standard Drinks/Week Comments No 0 (1 standard drink = 0.6 oz pur e alcohol) Sex and Gender Information Value Date Recorded Sex Assigned at Not on file Gender Identity Not on file Sexual Orientation Not on file documented as of this encounter Functional Status Functional Status Response Date of Assess ment Is person deaf or have serious hearing difficult y? No 10/13/2014 Is person blind or have serious difficulty seein g? No 10/13/2014 Does person have serious dif ficulty walking/climbing stairs? No 10/13/2014 Does person have difficulty dressing/bathing? No 10/13/2014 Does person have difficulty doing errands alone? No 10/13/2014 Cognitive Status Response Date of Assessm ent Does person have difficulty concentrating/remembering/making decisions? No 10/13/2014 documented as of this encounter Plan of Treatment Not on file documented as of this encounter Procedures Procedure Name Priority Date/Time Associated Diagnosis Comments DERMATOPATH TECHNICAL REPORT Routine 01/15/2018 12:00 AM CDT documented in this encounter Results * DERMATOPATH TECHNICAL REPORT (01/15/2018 12:00 AM CDT) Case Report Dermatopathology Report Case: [id number] Authorizing Provider: Sandra Cuello MD Collected: 01/15/2018 12:00 AM Pathologist: Yanet Huff MD Received: 01/16/2018 06:48 AM Specimen: Skin, right neck 9:16 AM CDT DERMATOPATHOLOGY LABORATORY Clinical History R/O cyst. Check margins. 9:16 AM CDT DERMATOPATHOLOGY LABORATORY Gross Description Specimen A: Received is one formalin filled container labeled with the patient's name and designated right neck. The specimen consists of a [id number] excision. The margin is inked green. The specimen is bisected and submitted in 1 cassette with 3 additional pieces measuring [id number], 5o0a1qt, & 2s8v1rp. Jar 0. [facility] Dermatopathology Laboratory performed the technical component only. 9:16 AM CDT DERMATOPATHOLOGY LABORATORY Embedded Images 9:16 AM CDT DERMATOPATHOLOGY LABORATORY DISCLAIMER An external and internal positive and negative controls are appropriate for the histochemical, immunohistochemical and immunofluorescence stain(s) in this case (if any), except where stated explicitly. The performance characteristics of the stain(s) cited in this report were developed and its performance characteristic determined by the Dermatopathology Laboratory at [facility]. These tests need not be, and therefore are not, approved by the [place] Food and Drug Administration. The tests are used for clinical purposes. 9:16 AM CDT DERMATOPATHOLOGY LABORATORY Pathology/Cytolog y TISSUE SPECIMEN FROM SKIN / Unknown 01/15/2018 01/16/2018 6:48 AM CDT Sandra Cuello MD LAB - PATHOLOGY/CYT OLOGY ORDERABLES DERMATOPATHOLOGY LABORATORY [facility] - Department of Dermatology [facility]5 [facility] [place], 5th Floor Lab [address] [phone] documented in this encounter Visit Diagnoses Not on filedocumented in this encounter Care Teams Side Panel Hanger Relationship Specialty Start Date End Date Bebe Callahan MD [address] [place] [address] PCP - General 08/16/21 documented as of this encounter
--- OUTSIDE RECORDS SUMMARY | 2024-07-18 09:20 | XMS_ITS | Encounter Summary ---
Author Organization [facility] Address [address] [facility] [place] [address] Care Team Providers Care Automobile Service Station Manager Name Role Phone Bebe Callahan MD Primary Care Provider + Encounter Details Date Type Department Care Team (Late st Contact Info) Description 06/02/2019 Lab Requisition [facility] [address] [facility], [place] [phone] Sandra Cuello MD [address] [facility] 3 [place] [address] Social History Tobacco Use Types Packs/Day Years [...] Procedure Name Priority Date/Time Associated Diagnosis Comments DERMATOPATHOLOGY Routine 2019 12:0 0 AM CORPORATE TRAINING MANAGER documented in this encounter Results * DERMATOPATHOLOGY (2019 12:00 AM CORPORATE TRAINING MANAGER) Case Report Dermatopathology Report Case: [id number] Authorizing Provider: Sandra Cuello MD Collected: 2019 12:00 AM Ordering Location: [facility] DermPath Lab Received: 06/02/2019 07:38 AM Pathologist: Tamir Potter MD Specimen: Skin, right upper lip 0 1:18 PM CORPORATE TRAINING MANAGER DERMATOPATHOLOGY LABORATORY Final Diagnosis Specimen A. SKIN, right upper lip: BASAL CELL CARCINOMA, NODULAR TYPE (C44.319) (see microscopic description) 0 1:18 PM [facility] DERMATOPATHOLOGY LABORATORY Clinical History BCC vs cyst. Non-healing. 0 1:18 PM CORPORATE TRAINING MANAGER DERMATOPATHOLOGY LABORATORY Gross Description Specimen A: Received is one formalin filled container labeled with the patient's name and designated right upper lip. The specimen consists of a shave measuring [id number]. Jar 0. 0 1:18 PM [facility] DERMATOPATHOLOGY LABORATORY Microscopic Description Specimen A. SKIN, right upper lip: Within the dermis there are aggregates of basaloid cells with a high nuclear to cytoplasmic ratio and peripheral palisading. Additional deeper sections were obtained and reviewed. 0 1:18 PM [facility] DERMATOPATHOLOGY LABORATORY Disclaimer An external and internal positive and negative controls are appropriate for the histochemical, immunohistochemical and immunofluorescence stain(s) in this case (if any), except where stated explicitly. The performance characteristics of the stain(s) cited in this report were developed and its performance characteristic determined by the Dermatopathology Laboratory at [facility], directed by Dr. Talya Potter. These tests need not be, and therefore are not, approved by the [place] Food and Drug Administration. The tests are used for clinical purposes. Billing Codes Specimen Charges Stain Charges 93010 1 0 1:18 PM CORPORATE TRAINING MANAGER DERMATOPATHOLOGY LABORATORY Embedded Images 0 1:18 PM CORPORATE TRAINING MANAGER DERMATOPATHOLOGY LABORATORY Pathology/Cytolog y TISSUE SPECIMEN FROM SKIN / Unknown 2019 06/02/2019 7:38 AM CORPORATE TRAINING MANAGER Sandra Cuello MD LAB - PATHOLOGY/CYT OLOGY ORDERABLES DERMATOPATHOLOGY LABORATORY [facility] - Department of Dermatology [address] [place] [address] 5th Floor Lab [address] [phone] documented in this encounter Visit Diagnoses Not on filedocumented in this encounter Care Teams Automobile Service Station Manager Relationship Specialty Start Date End Date Bebe Callahan MD [address] [place] [address] PCP - General 08/16/21 documented as of this encounter
--- OUTSIDE RECORDS SUMMARY | 2024-07-18 09:21 | XMS_ITS | Clinical Summary ---
Author Organization [facility] [address] [facility] [address] Address [address] [facility] [place] [address] Care Team Providers Care Laborer Orchard Name Role Phone Bebe Callahan MD Primary Care Provider Allergies Active Allergy Reactions Criticality Noted Date Comments Cefuroxime Hives Medium 05/26/2016 House Dust Mold Nitrofurantoin Hives,Anaphylaxis,U rticaria High 09/25/2014 Reaction: Hives, Other reaction(s): Hives Hives Fzxhnpl-Ypw-Lvn Reductase Inhibitors Muscle pain Medium 08/09/2022 Tree And Shrub Pollen Medications D-MANNOSE ORAL 1 Active azelastine 205.5 mcg (0.15 %) spray,non-aeros [...] Cardiac pacemaker in situ 06/21/2022 Overview (12/11/2023): [employer] Edora Dual Pacemaker, Dx; Sinus Node Dysfunction, Symptomatic Bradycardia, PAF. DOI 06/21/2022-[facility]. [employer] remote monitoring. Chronic fatigue 01/17/2022 LVH (left ventricular hypertrophy) 01/17/2022 Abnormal ECG 01/17/2022 Symptomatic bradycardia 12/09/2021 Chronotropic incompetence with sinus node dysfun ction 12/09/2021 Near syncope 12/09/2021 Syncope and collapse 12/09/2021 Nonrheumatic aortic valve stenosis 12/09/2021 Atypical chest pain 07/23/2010 Epigastric pain 07/23/2010 Mediastinal mass 12/07/2009 Encounters Date Type Department Care Team Description 06/24/2024 7:15 AM CDT Ancillary Procedure [facility] Medical [facility] Cardiology [facility] [address] [place] [phone] Paroxysmal atrial fibrillation (HCC) [I48.0] (Primary Dx); Symptomatic bradycardia; Chronotropic incompetence with sinus node dysfunction [I49.8]; Cardiac pacemaker in situ [Z95.0] from Last 3 Months Surgical History Surgery Date Site/Laterality Comments MA GASTRIC RSTCV W/BYP W/VAN RT LIMB 150 CM/< Gastric Surgery For Morbid Obesity Bypass With Leticia-en-Y - (Added by TW Conv) MA ESOPHAGOGASTRODUODENOSCOP Y TRANSORAL DIAGNOSTIC Diagnostic Esophagogastroduodenoscopy - (Added by TW Conv) CHOLECYSTECTOMY LASIK SHAMEKA FUNDOPLICATION Medical History Medical History Date Comments Personal history of other en docrine, nutritional and metabolic disease History of obesity - (Added by TW Conv) Personal history of other di seases of the circulatory system History of hypertension - (A dded by TW Conv) Personal history of other en docrine, nutritional and metabolic disease History of diabetes mellitus - (Added by TW Conv) Personal history of other en docrine, nutritional and metabolic disease History of hyperlipi demia - (Added by TW Conv) Other allergy status, other than to drugs and biological substances Environmental allergie s - (Added by TW Conv) Bradycardia Anemia MDD (major depressive disorder) Neuropathy Thalassemia PUD (peptic ulcer disease) Thyroid disease Family History Medical History Relation Name Comments Lung cancer Father Malignant Neopl asm Bronchus and Lung - (Added by TW Conv) Hypertension Mother Hypertension - (Added by TW Conv) Obesity Mother Obesity - (Adde d by TW Conv) Stroke Mother Stroke Syndrome - (Added by TW Conv) Relation Name Status Comments Father Mother Social History Tobacco Use Types Packs/Day Years Used Date Smoking Tobacco: Former Comments Unknown Sex and Gender Information Value Date Recorded Sex Assigned at Not on file 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 Gender Identity Female 02/04/2021 10:35 AM CDT Sexual Orientation Straight 02/04/2021 10 :35 AM CDT Obstetrics History Last Filed Vital Signs Vital Sign Reading [...] 12/18/2023 9:01 AM CDT Plan of Treatment Health Maintenance Due Date Last Done Comments Breast Cancer Screening-Mammogram 1952 Colon Cancer Screening-Colonoscopy 1950 Depression Screening 1952 Fall Risk Assessment 1950 Hepatitis C Screening 1952 Osteoporosis Screening-Bone Density Scan 1952 Hepatitis B Screening 1970 Zoster Vaccine (1 of 2) 2002 Well Visit 65+ 2017 Covid-19 Vaccine (4 - 2023-2 5 season) 2023 01/11/2021, 07/02/2020, 06/08/2020 Influenza Vaccine (#1) 2023 , 12/18/2019, 12/18/2019, Additional history exists DTaP/Tdap/Td Vaccine (3 - Td or Tdap) 12/11/2028 12/11/2018, 06/26/2013 Pneumococcal vaccine 65+ Completed 020, 12/11/2018, 05/18/2016 Procedures Procedure Name Priority Date/Time Associated Diagnosis Comments DEVICE CHECK - REMOTE Routine 06/24/2024 5:13 PM CDT Symptomatic bradycardia from Last 3 Months Results * DEVICE CHECK - REMOTE (06/24/2024 5:13 PM CDT) Anatomical Region Laterality Modality Other Narrative 07/04/2024 8:37 AM CDT [employer] Edora Dual Pacemaker, Dx; Sinus Node Dysfunction, Symptomatic Bradycardia, PAF. DOI 06/21/2022-[facility]. [employer] remote monitoring. Routine DDD Pacemaker Remote. Transmission attached. Stable lead impedances, pacing and sensing thresholds. Battery function: Ok, 85% remaining battery life to [employer]. Presenting: AP-VS. AP-72 %, FURNITURE AND BEDDING INSPECTOR-0 %. No AT/AF episodes noted,. No Ventricular arrhythmias detected. Medication: ASA 81 mg. Follow up: office pacemaker f/u 11/05/2024. [employer] remote f/u 6 months. Lashon Crabtree, RN Marychuy Duval MD CV CARDIAC SERVICES PROCEDU RES Final Result from Last 3 Months Insurance MEDICARE FOR LIFE MEDICARE FOR LIFE MEDICARE FOR LIFE Care Teams Laborer Orchard Relationship Specialty Start Date End Date Bebe Callahan MD [address] [facility] [address] [place] [address] PCP - General Family Medicine 01/11/21
--- OUTSIDE RECORDS SUMMARY | 2024-07-18 09:21 | XMS_ITS | CONTINUITY OF CARE DOCUMENT ---
Author Name cory ray Address Unknown Organization [facility] Address [address] [facility] [address] [place] [address] Phone [phone] Care Team Providers Care Talent Agent Name Role Phone Josr Nash MD Unavailable RINKU CHAUDHARY MD Unavailable Unavailable INSURANCE PROVIDERS Payer name Policy type / Coverage type Eulogio red constitution party ID FOR LIFE [id number] [place] Medicare [id number]
--- OUTSIDE RECORDS SUMMARY | 2024-07-18 09:21 | XMS_ITS | Continuity of Care Document ---
Author Name [facility] Organization [facility] Care Team Providers Care Clamp Forklift Operator Name Role Phone [facility] Unavailable Unavailable Problems Combined list of problems from Department of Defense and Veterans Affairs facilities. It does not include entries that were removed or entered in error. Problem Status Onset Date Problem Type Date of Resolution Comments Source TEMPOPORMAND JOINT DIS NOS Active Condition [facility] Medications Combined list of outpatient medications from Department of [facility] and [facility] facilities.Medications provided include 1) outpatient medications from the last 15 months, and 2) patient-reported medications. Medication Details Route Status Patient Instructions Prescription Expires Prescription Number Last Dispense Date Ordering Provider Order Date Order Qty Source azelastine 137 mcg/inh nasal spray [30mL] See Instruct ions, # 30 mL, 0 total refill(s ), Hard Stop Complet ed 12/06/2023 3 2023 30.0 Ambulat ory Pharmac y azelastine 137 mcg/inh nasal spray [30mL] See Instruct ions, # 30 mL, 0 total refill(s ), Hard Stop Complet ed 05/31/2024 4 2024 30.0 Ambulat ory Pharmac y ezetimibe 10 mg tablet 10 mg, Oral, Daily, # 90 EA, 1 total refill(s ), Hard Stop Oral (given by mouth) Ordered 12/02/2024 4 2023 90.0 Ambulat ory Pharmac y ezetimibe 10 mg tablet 10 mg, Oral, Daily, # 90 EA, 1 total refill(s ), Soft Stop Oral (given by mouth) Ordered 5 2024 90.0 Ambulat ory Pharmac y ezetimibe 10 mg tablet 10 mg, Oral, Daily, # 90 EA, 1 total refill(s ), Hard Stop Oral (given by mouth) Complet ed 12/05/2023 3 2023 90.0 Ambulat ory Pharmac y ezetimibe 10 mg tablet 10 mg, Oral, Daily, # 90 EA, 1 total refill(s ), Hard Stop Oral (given by mouth) Discont inued 12/05/2023 4 2023 90.0 Ambulat ory Pharmac y fexofenadin e 180 mg tablet 180 mg, Oral, Daily, # 90 EA, 1 total refill(s ), Hard Stop Oral (given by mouth) Ordered 12/02/2024 4 2023 90.0 Ambulat ory Pharmac y fexofenadin e 180 mg tablet 180 mg, Oral, Daily, # 90 EA, 1 total refill(s ), Hard Stop Oral (given by mouth) Discont inued 12/05/2023 4 2023 90.0 Ambulat ory Pharmac y fexofenadin e 180 mg tablet 180 mg, Oral, Daily, # 90 EA, 1 total refill(s ), Hard Stop Oral (given by mouth) Complet ed 12/05/2023 3 2023 90.0 Ambulat ory Pharmac y FLUoxetine 40 mg capsule See Instruct ions, # 90 EA, 1 total refill(s ), Acute Complet ed 07/10/2023 3 2023 90.0 Ambulat ory Pharmac y FLUoxetine 40 mg capsule 40 mg, Oral, Daily, # 90 EA, 1 total refill(s ), Hard Stop Oral (given by mouth) Discont inued 01/14/2024 4 2023 90.0 Ambulat ory Pharmac y FLUoxetine 40 mg capsule 40 mg, Oral, Daily, # 90 EA, 1 total refill(s ), Hard Stop Oral (given by mouth) Ordered 01/12/2025 4 2023 90.0 Ambulat ory Pharmac y FLUoxetine 40 mg capsule 40 mg, Oral, Daily, # 90 EA, 1 total refill(s ), Hard Stop Oral (given by mouth) Discont inued 07/16/2023 4 2023 90.0 Ambulat ory Pharmac y fluticasone 50 mcg/inh nasal spray [16g] 100 mcg, Nostril- Both, Daily, # 48 g, 0 total refill(s ), Hard Stop Nostri l-Both (into the nose) Complet ed 07/12/2024 4 2024 48.0 Ambulat ory Pharmac y fluticasone 50 mcg/inh nasal spray [16g] 100 mcg, Nostril- Both, Daily, # 16 g, 0 total refill(s ), Hard Stop Nostri l-Both (into the nose) Discont inued 07/16/2023 3 2023 16.0 Ambulat ory Pharmac y montelukast 10 mg tablet 10 mg, Oral, # 30 EA, 2 total refill(s ), Hard Stop Oral (given by mouth) Ordered 03/04/2025 4 2023 30.0 Ambulat ory Pharmac y Allergies, Adverse Reactions, Alerts Combined list of allergies from Department of Defense and Veterans Affairs facilities. It does not include entries that were removed or entered in error. Substance Category Reaction Severity Reaction type Status Date Reported Comments Source cefuroxime Propensity to adverse reactions to drug Urticaria Active 8 Unknown Organizat ion nitrofuranto in Propensity to adverse reactions to drug Urticaria Active 8 Unknown Organizat ion Immunizations Combined list of available immunizations from the Department of Defense and Veterans Affairs facilities. Immunization Series Date Given Administered By Site Reaction Lot Number CVX Code Drug Wire Coating Machine Operator Status Comments Source pneumococcal polysaccharid e, 23 valent [facility] [id number] [employer] complet ed pneumococ henry polysacch aride, 23 valent 03/17/20 Given Ambulat ory Pharmac y influenza virus vaccine, unspecified 2019 TRANSCR IBED 88 complet ed influenza virus vaccine, unspecifi ed 12/18/19 Given Ambulat ory Pharmac y measles/mumps /rubella virus vaccine [facility] [id number] [employer] complet ed measles/m umps/rube lla virus vaccine 03/04/19 Given Ambulat ory Pharmac y influenza, injectable, quadrivalent- pf 2018 TRANSCR IBED 150 Seqirus complet ed influenza , injectabl e, quadrival ent-pf 02/02/19 Given Ambulat ory Pharmac y measles/mumps /rubella virus vaccine 2018 z[facility] Arm [id number] [employer] complet ed measles/m umps/rube lla virus vaccine 12/30/18 Given Ambulat ory Pharmac y typhoid Vi capsular polysaccharid e vac 2018 zz[facility]ef [facility] Arm [id number] sanofi pasteur complet ed typhoid Vi capsular polysacch aride vac 12/11/18 Given Ambulat ory Pharmac y pneumococcal polysaccharid e, 23 valent 2018 zz[facility]ef [facility] Arm [id number] 33 [employer] Inc complet ed pneumococ henry polysacch aride, 23 valent 12/11/18 Given Ambulat ory Pharmac y tetanus, diphtheria, acellular pertu is 2018 zz[facility]ef [facility] Arm [id number] GlaxoSmithK[employer] de complet ed tetanus, diphtheri a, acellular pertussis 12/11/18 Given Ambulat ory Pharmac y influenza, injectable, quadrivalent- pf 2017 zz[facility]ef [facility] Arm [id number] Seqirus complet ed influenza , injectabl e, quadrival ent-pf 02/07/18 Given Ambulat ory Pharmac y Influenza, inj, MDCK, quadrivalent- pf [facility] [id number] Se[employer] complet ed Influenza , inj, MDCK, quadrival ent-pf 03/06/17 Given Ambulat ory Pharmac y pneumococcal 13-valent conjugate (PCV13) [facility] [id number] reBounces complet ed pneumococ henry 13-valent conjugate (PCV13) 05/18/16 Given Ambulat ory Pharmac y influenza, seasonal, injectable-pf 2015 zz[facility]ef [facility] Arm [id number] Seqirus complet ed influenza , seasonal, injectabl e-pf 01/10/16 Given Ambulat ory Pharmac y influenza, injectable, quadrivalent- pf 2014 150 sanofi pasteur complet ed influenza , injectabl e, quadrival ent-pf 02/17/15 Given Ambulat ory Pharmac y tetanus, diphtheria, acellular pertu is 2013 115 sanofi pasteur complet ed tetanus, diphtheri a, acellular pertussis 06/26/13 Given Ambulat ory Pharmac y influenza, seasonal, injectable 2009 141 Novartis Pharmaceutica ls complet ed influenza , seasonal, injectabl e 02/21/10 Given Ambulat ory Pharmac y Encounters Combined list of: 1) Encounters from [facility] facilities going backup to the last 18 months, not all ID inpatient encounters are included; 2) Encounters from the [facility] facilities going backup to 280 months. Location Location Details Encounter Type Encounter Number Reason For Visit Attending Provider ADM Date DC Date Status Disposition Source [facility] Outpatient Encounter [id number] 01/04 [facility] Procedures Combined list of: 1) Procedures from [facility] facilities going back up to thelast 18 months, not all ID non-surgical procedures are included; 2) All procedures from the [facility] facilities. Procedure Procedure Type Code Date Perfomer Comments Sourc e No data available for this section Ambulatory P harmacy Assessment and Plan Combined list of future care activities from [facility] and [facility] facilities (e.g., assessment and plan notes, appointments, orders, and referrals). Additional future care activities may be listed in the Plan of Care section. Result Assessment and Plan Date Source Assessment and Plan No data available for this section 07/18/2024 Ambulatory Pharmacy Functional Status Combined list of recent functional and cognitive assessments recorded at Department of [facility] and [facility] (ID).VA Functional Guadalupe Measurement (FIM) Scale: 1 = Total Assistance (Subject = 0% +), 2 = Maximal Assistance (Subject = 25% +), 3 = Moderate Assistance (Subject = 50% +), 4 = Minimal Assistance (Subject = 75% +), 5 = Supervision, 6 = Modified Guadalupe (Device), 7 = Complete Guadalupe (Timely, Safely). Assessment Date/Time Source Assessment Type Assessment Skill Assessment Score Assessment Details No data available for this section
--- OUTSIDE RECORDS SUMMARY | 2024-07-18 09:21 | XMS_ITS | Clinical Summary ---
Author Organization [facility] Address [address] [place] [address] Care Team Providers Care Physician In Private Practice Name Role Phone Lashell Rodrigues Primary Care Provider [phone] Allergies Active Allergy Reactions Criticality Noted Date Comments Cefuroxime Hives 12/10/2019 Nitrofurantoin Anaphylaxis High 12/10/2019 Encounters Date Type Department Care Team Description 05/22/2024 3:56 PM RN BIRTHING - 05/22/2024 11:59 PM RN BIRTHING Hospital Encounter [facility] [place] [address] Gianfranco Cottrell MD Discharge Disposition: Home or Self Care (Routine Discharge) 05/22/2024 Orders Only [facility] [place] [address] Gianfranco Cottrell MD from Last 3 Months Social History Tobacco Use Types Packs/Day Years Used Date Smoking Tobacco: Never Smokeless Tobacco: Never Alcohol Use Standard Drinks/Week Comments Not Currently 0 (1 standard drink = 0.6 oz pur e alcohol) Comments No Sex and Gender Information Value Date Recorded Sex Assigned at Not on file Legal Sex Female 11:10 PM CDT Gender Identity Not on file Sexual Orientation Not on file Last Filed Vital Signs Vital Sign Reading Time Taken Comments Blood Pressure 155/84 12/10/2019 5:26 PM CDT Pulse 63 12/10/2019 5:22 PM CDT Temperature 36.7 C (98.1 F) 12/10/2019 1:12 PM CDT Respiratory Rate 18 12/10/2019 1:12 PM CDT Oxygen Saturation 100% 12/10/2019 1:12 PM CDT Inhaled Oxygen Concentration - - Weight 87.1 kg (192 lb) 12/10/2019 1:12 PM CDT Height 167.6 cm (5' 6 ) 12/10/2019 1:12 PM CDT Body Mass Index 30.99 12/10/2019 1:12 PM CDT Plan of Treatment Health Maintenance Due Date Last Done Comments Colorectal Cancer Screening Colonoscopy (10 Years) 1952 Hepatitis C 1970 DTaP, Tdap and Td Vaccines ( 1 - Tdap) 1971 Mammogram Screening 1992 Zoster Vaccines (1 of 2) 2002 Annual Medicare Wellness Visit 2017 Dexa Scan (General) 2017 Pneumococcal Vaccine: 65+ Ye ars (1 of 1 - PCV) 2017 COVID-19 Vaccine (2023-2 5 season) 2023 RSV Immunization or 60+ Years (1 - 1-dose 75+ series) 2027 Meningococcal B Vaccine Aged Out No l onger eligible based on patient's age to complete this topic Meningococcal Vaccine Aged Out No jodie selvin eligible based on patient's age to complete this topic RSV Immunizations Under 20 Months Aged Out No longer eligible based on patient's age to complete this topic Procedures Procedure Name Priority Date/Time Associated Diagnosis Comments CULTURE, FUNGUS W/ STAIN Routine 05/22/2024 10:20 AM RN BIRTHING Chronic pansinusitis CULTURE, ANAEROBIC Routine 05/22/2024 10 :20 AM RN BIRTHING Chronic pansinusitis CULTURE, WOUND, W/GRAM STAIN Routine 05/22/2024 10:20 AM RN BIRTHING Chronic pansinusitis from Last 3 Months Results * CULTURE FUNGUS W/ STAIN (05/22/2024 10:20 AM RN BIRTHING) SPEC DESCRIPTION NASAL 05/22/2024 3:58 PM RN BIRTHING [facility] SPECIAL REQUESTS NO SPECIAL REQUEST 05/22/2024 3:58 PM RN BIRTHING [facility] STAIN RESULT: NO YEAST OR FUNGAL ELEMENTS SEEN 05/23/2024 11:16 AM RN BIRTHING [facility] CULTURE RESULT NO FUNGUS ISOLATED AT 4 WEEKS. 06/21/2024 4:35 PM [facility] SPECIMEN FROM INTERNAL NOSE / Unknown 05/22/2024 10:20 AM RN BIRTHING 05/22/2024 3:59 PM RN BIRTHING Gianfranco Cottrell MD MICROBIOLOGY - GENERAL ORDERABL ES Final Result [facility] [address] [place] [address], * (ABNORMAL) CULTURE, WOUND, W/GRAM STAIN (05/22/2024 10:20 AM RN BIRTHING) SPEC DESCRIPTION NOSE 05/22/2024 3:58 PM RN BIRTHING [facility] SPECIAL REQUESTS NO SPECIAL REQUEST 05/22/2024 3:58 PM [facility] GRAM STAIN RESULT MANY WHITE BLOOD CELLS SEEN 05/23/2024 10:35 AM [facility] GRAM STAIN RESULT NO ORGANISMS SEEN 05/23/2024 10:35 AM [facility] CULTURE RESULT SPARSE GROWTH OF ACINETOBACTER LWOFFII (A) 05/25/2024 8:07 AM [facility] SPECIMEN FROM NOSE / Unknown 05/22/2024 10:20 AM RN BIRTHING 05/22/2024 3:58 PM RN BIRTHING Narrative Organism Antibiotic Method Susceptibility Acinetobacter lwoffii AMPICILLIN/SULBACTAM DK (VITEK) <=2: Sensitive Acinetobacter lwoffii CEFTRIAXONE DK (VITEK) <=1: Sensitive Acinetobacter lwoffii CEFTAZIDIME DK (VITEK) <=1: Sensitive Acinetobacter lwoffii GENTAMICIN DK (VITEK) <=1: Sensitive Acinetobacter lwoffii LEVOFLOXACIN DK (VITEK) <=0.12: Sensitive Acinetobacter lwoffii TRIMETH-SULFAMETH. DK (VITEK) <=20: Sensitive Gianfranco Cottrell MD MICROBIOLOGY - GENERAL ORDERABL ES Final Result Performing Organization Address [facility] Co de Phone Number [facility] [address] [place] [address], [place] [phone] * CULTURE ANAEROBIC (05/22/2024 10:20 AM RN BIRTHING) SPEC DESCRIPTION NASAL 05/22/2024 3:58 PM RN BIRTHING [facility] SPECIAL REQUESTS NO SPECIAL REQUEST 05/22/2024 3:58 PM RN BIRTHING [facility] GRAM STAIN RESULT MANY WHITE BLOOD CELLS SEEN 05/23/2024 10:35 AM RN BIRTHING [facility] GRAM STAIN RESULT NO ORGANISMS SEEN 05/23/2024 10:35 AM RN BIRTHING [facility] CULTURE RESULT NO ANAEROBES ISOLATED AT 5 DAYS. 05/27/2024 6:48 AM RN BIRTHING [facility] SPECIMEN FROM INTERNAL NOSE / Unknown 05/22/2024 10:20 AM RN BIRTHING 05/22/2024 3:59 PM RN BIRTHING Gianfranco Cottrell MD MICROBIOLOGY - GENERAL ORDERABL ES Final Result Performing Organization Address [facility]/ZIP Co de Phone Number [facility] [address] [place] [address], [place] [phone] from Last 3 Months Insurance MEDICARE [employer] Advance Directives Documents on File Type Date Recorded Patient Carpenter Labor Supervisor Expl anation Advance Directives and Livin g Will 12/01/2015 POWER OF ANTISQUEAK WORKER Advance Directives and Livin g Will 12/01/2015 ADVANCE DIRECTIVE Care Teams Physician In Private Practice Relationship Specialty Start Date End Date Lashell Rodrigues DO PCP - General FAMILY PRACTICE 12/10/19
[2024-07-18 09:44] LABS: Basophils Percent Auto 0.8 % (0.2-1.2); Eosinophils Absolute Auto 0.3 K/mm3 (0-0.3); Eosinophils Percent Auto 5.2 % (0-4.4); Hematocrit 37.2 % (37.0-47.0); Hemoglobin 11.5 g/dL (12.0-15.0); Immature Granulocyte Absolute 0.01 K/mm3 (0.00-0.031); Immature Granulocyte Percent A 0.2 % (0-0.5); Lymphocytes Absolute Auto 1.61 K/mm3 (0.9-3.2); Mean Corpuscular HGB Conc 30.9 g/dl (32-36); Mean Corpuscular Hemoglobin 19.8 pg (26-34); Mean Corpuscular Volume 64.1 fl (80-100); Mean Platelet Volume 10.3 fl (7.4-10.4); Monocytes Absolute Auto 0.4 K/mm3 (0.1-0.6); Monocytes Percent Auto 7.8 % (2.6-8.5); Neutrophils Absolute Auto 2.7 K/mm3 (1.3-6.7); Nucleated Red Blood Cells Perc 0.4 % (0.0-0.2); Platelet Count Result 253 k/mm3 (150-375); Red Cell Distribution Width 17.9 % (11.5-14.5)
[2024-07-18 09:54] LABS: Hemoglobin A1C 5.7 % (<5.7)
[2024-07-18 09:56] LABS: Alanine Aminotransferase 25 U/L (6-35); Albumin Level 4.4 g/dL (3.5-5.1); Alkaline Phosphatase 70 U/L (38-126); Anion Gap 6 mmol/L (4-12); Aspartate Amino Transferase 28 U/L (14-36); Bilirubin,Total 0.9 mg/dL (0.2-1.3); Blood Urea Nitrogen 18 mg/dL (7-17); Calcium 9.2 mg/dL (8.4-10.2); Carbon Dioxide 30 mmol/L (22-30); Chloride 104 mmol/L (98-107); Cholesterol 222 mg/dL (0-200); Estimated Glomerular Filt Rate 58; Glucose 100 mg/dL (65-110); HDL Direct 54 mg/dL; Potassium 4.5 mmol/L (3.4-5.0); Sodium 140 mmol/L (137-145); Triglycerides 148 mg/dL (<150)
[2024-07-18 10:07] LABS: LDL Cholesterol Direct 136 mg/dL
[2024-07-18 10:23] LABS: Free T4 Free Thyroxine 1.04 ng/dL (0.78-2.19)
[2024-07-18 10:36] LABS: Anisocytosis 1+; Microcytosis 1+ (NORMAL); Platelet Estimate Adequate (Adequate)
[2024-07-18 10:37] LABS: Ovalocytes 1+; Schistocytes None Seen
== END 2024-07-18 09:16 | disposition home or self-care (01) ==
PROVIDERS: PCP Family Medicine; Visit Provider Physician Assistant
DX: E78.2 Mixed hyperlipidemia (principal); D56.1 Beta thalassemia; E07.9 Disorder of thyroid, unspecified; R73.9 Hyperglycemia, unspecified
CPT/HCPCS: 36415; 80053; 80061; 83036; 84439; 84443; 85025

== ENCOUNTER 2024-07-22 12:46 | Outpatient (CLI) | payer MEDICARE, OTHER, SELFPAY ==
--- NOTE | ~2024-07-22 | MM_ITS ---
EXAMINATION: MM diagnostic basil LT w ute HISTORY: Follow-up left breast calcifications TECHNIQUE: Additional 3-D tomosynthesis images of left were performed and synthetic 2-D images were g enerated. CAD analysis was submitted and interpreted. COMPARISON: Comparison to multiple prior studies sequentially, with oldest reviewed study dated 10/27. BREAST PARENCHYMAL COMPOSITION: Not dense: There are scattered areas of fibroglandular density. FINDINGS: Clustered calcifications upper outer quadrant of the left breast, posterior third are not s ignificantly changed compared with prior studies dated 12/26/2022 01/16/2024. No new masses, calcifica tions or architectural distortion. IMPRESSION: 1. Stable likely benign left breast calcifications, upper outer quadrant, posterior third. 2. Given one year of interval stability, recommend 12 month followup diagnostic mammogram recommended . BI-RADS category 3, probably benign findings. Reviewed, dictated and finalized at location A. IMPRESSION: 1. Stable likely benign left breast calcifications, upper outer quadrant, poste rior third. 2. Given one year of interval stability, recommend 12 month followup diagnostic mammogram recommended. BI-RADS category 3, probably benign findings.
--- OUTSIDE RECORDS SUMMARY | 2024-07-22 13:54 | XMS_ITS | Referral Summary ---
Author Organization [facility] [address] [facility] [address] Address [address] [facility] [address] [place] [address] Care Team Providers Care Burnt Lime Drawer Name Role Phone Bebe Callahan MD Primary Care Provider Encounters Date Type Department Care Team Description 06/24/2024 7:15 AM CDT Ancillary Procedure [facility] Cardiology [address] [place] [address] [place] [phone] Paroxysmal atrial fibrillation (HCC) [I48.0] (Primary Dx); Symptomatic bradycardia; Chronotropic incompetence with sinus node dysfunction [I49.8]; Cardiac pacemaker in situ [Z95.0] from Last 3 Months Allergies Active Allergy Reactions Criticality Noted Date Comments Cefuroxime Hives Medium 05/26/2016 House Dust Mold Nitrofurantoin Hives,Anaphylaxis,U rticaria High 09/25/2014 Reaction: Hives, Other reaction(s): Hives Hives Ymqukbn-Kcf-Mpi Reductase Inhibitors Muscle pain Medium 08/09/2022 Tree [...] Cardiac pacemaker in situ 06/21/2022 Overview (12/11/2023): [employer] [place] Dual Pacemaker, Dx; Sinus Node Dysfunction, Symptomatic Bradycardia, PAF. DOI 06/21/2022-[facility]. [employer] remote monitoring. 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 DOI 06/21/2022-[facility]. [employer]ik remote monitoring. Routine DDD Pacemaker Remote. Transmission attached. Stable lead impedances, pacing and sensing thresholds. Battery function: Ok, 85% remaining battery life to FIGUEROA. Presenting: AP-VS. AP-72 %, FACULTY NEUROPSYCHOLOGIST-0 %. No AT/AF episodes noted,. No Ventricular arrhythmias detected. Medication: ASA 81 mg. Follow up: office pacemaker f/u 11/05/2024. [employer] remote f/u 6 months. Lashon Crabtree, HAYDEN Marychuy Duval MD [facility] C[facility]IAC [facility] PROCEDU RES Final Result from Last 3 Months Insurance MEDICARE FOR LIFE MEDICARE FOR LIFE MEDICARE FOR LIFE Care Teams Burnt Lime Drawer Relationship Specialty Start Date End Date Bebe Callahan MD [address] [place] [address] PCP - General Family Medicine 01/11/21
--- OUTSIDE RECORDS SUMMARY | 2024-07-22 13:54 | XMS_ITS | Encounter Summary ---
Author Organization [facility] Address [address] [facility] [place] [address] Care Team Providers Care Liquor Clerk Name Role Phone Bebe Callahan MD Primary Care Provider + Encounter Details Date Type Department Care Team (Late st Contact Info) Description 06/02/2019 Lab Requisition [facility] [address] [facility], [place] [id number] Sandra Cuello MD [address] [facility] [address] [place] [address] Social History Tobacco Use Types Packs/Day Years [...] Comments DERMATOPATHOLOGY Routine 2019 12:0 0 AM ADJUNCT ENGLISH INSTRUCTOR documented in this encounter Results * DERMATOPATHOLOGY (2019 12:00 AM ADJUNCT ENGLISH INSTRUCTOR) Case Report Dermatopathology Report Case: [id number] Authorizing Provider: Sandra Cuello MD Collected: 2019 12:00 AM Ordering Location: [facility] Received: 06/02/2019 07:38 AM Pathologist: Tamir Potter MD Specimen: Skin, right upper lip 0 1:18 PM ADJUNCT ENGLISH INSTRUCTOR DERMATOPATHOLOGY LABORATORY Final Diagnosis Specimen A. SKIN, right upper lip: BASAL CELL CARCINOMA, NODULAR TYPE (C44.319) (see microscopic description) 0 1:18 PM [facility] DERMATOPATHOLOGY LABORATORY Clinical History BCC vs cyst. Non-healing. 0 1:18 PM ADJUNCT ENGLISH INSTRUCTOR DERMATOPATHOLOGY LABORATORY Gross Description Specimen A: Received is one formalin filled container labeled with the patient's name and designated right upper lip. The specimen consists of a shave measuring [id number]. Jar 0. 0 1:18 PM [facility] DERMATOPATHOLOGY LABORATORY Microscopic Description Specimen A. SKIN, right upper lip: Within the dermis there are aggregates of basaloid cells with a high nuclear to cytoplasmic ratio and peripheral palisading. Additional deeper sections were obtained and reviewed. 0 1:18 PM [facility] DERMATOPATHOLOGY LABORATORY Disclaimer An external and internal positive and negative controls are appropriate for the histochemical, immunohistochemical and immunofluorescence stain(s) in this case (if any), except where stated explicitly. The performance characteristics of the stain(s) cited in this report were developed and its performance characteristic determined by the Dermatopathology Laboratory at [facility], directed by Dr. Talya Potter. These tests need not be, and therefore are not, approved by the [place] Food and Drug Administration. The tests are used for clinical purposes. Billing Codes Specimen Charges Stain Charges 84248 1 0 1:18 PM ADJUNCT ENGLISH INSTRUCTOR DERMATOPATHOLOGY LABORATORY Embedded Images 0 1:18 PM ADJUNCT ENGLISH INSTRUCTOR DERMATOPATHOLOGY LABORATORY Pathology/Cytolog y TISSUE SPECIMEN FROM SKIN / Unknown 2019 06/02/2019 7:38 AM ADJUNCT ENGLISH INSTRUCTOR Sandra Cuello MD LAB - PATHOLOGY/CYT OLOGY ORDERABLES DERMATOPATHOLOGY LABORATORY [facility] - Department of Dermatology [address] [place] [address] 5th Floor Lab [address] [phone] documented in this encounter Visit Diagnoses Not on filedocumented in this encounter Care Teams Liquor Clerk Relationship Specialty Start Date End Date Bebe Callahan MD [address] [place] [address] PCP - General 08/16/21 documented as of this encounter
--- OUTSIDE RECORDS SUMMARY | 2024-07-22 13:54 | XMS_ITS | Encounter Summary ---
Author Organization [facility] Address [address] [facility] [place] [address] Care Team Providers Care It Recruiter Name Role Phone Bebe Callahan MD Primary Care Provider + Encounter Details Date Type Department Care Team (Late st Contact Info) Description 01/16/2018 Lab Requisition [facility] [address] [facility] [place] [phone] Sandra Cuello MD [address] [facility] 3 [place] [address] Social History Tobacco Use Types Packs/Day Years [...] AM CDT) Case Report Dermatopathology Report Case: [id number] Authorizing Provider: Sandra Cuello MD Collected: 01/15/2018 12:00 AM Pathologist: Yanet Huff MD Received: 01/16/2018 06:48 AM Specimen: Skin, right neck 9:16 AM CDT DERMATOPATHOLOGY LABORATORY Clinical History R/O cyst. Check margins. 9:16 AM CDT DERMATOPATHOLOGY LABORATORY Gross Description Specimen A: Received is one formalin filled container labeled with the patient's name and designated right neck. The specimen consists of a [id number] excision. The margin is inked green. The specimen is bisected and submitted in 1 cassette with 3 additional pieces measuring [id number], [id number], & [id number]. Jar 0. [facility] Dermatopathology Laboratory performed the technical component only. [...] characteristic determined by the Dermatopathology Laboratory at [facility]. These tests need not be, and therefore are not, approved by the [place] Food and Drug Administration. The tests are used for clinical purposes. 9:16 AM CDT DERMATOPATHOLOGY LABORATORY Pathology/Cytolog y TISSUE SPECIMEN FROM SKIN / Unknown 01/15/2018 01/16/2018 6:48 AM CDT Sandra Cuello MD LAB - PATHOLOGY/CYT OLOGY ORDERABLES DERMATOPATHOLOGY LABORATORY [facility] - Department of Dermatology [facility] [facility], 5th Floor Lab [address] [phone] documented in this encounter Visit Diagnoses Not on filedocumented in this encounter Care Teams It Recruiter Relationship Specialty Start Date End Date Bebe Callahan MD [address] [place] [address] PCP - General 08/16/21 documented as of this encounter
--- OUTSIDE RECORDS SUMMARY | 2024-07-22 13:54 | XMS_ITS | CONTINUITY OF CARE DOCUMENT ---
Author Name cory ray Address Unknown Organization [facility] Address [address] [facility] [address] [place] [address] Phone [phone] Care Team Providers Care Tag And Label Cutter Name Role Phone Josr Nash MD Unavailable [phone] RINKU CHAUDHARY MD Unavailable Unavailable INSURANCE PROVIDERS Payer name Policy type / Coverage type Eulogio red libertarian ID FOR LIFE [id number] [place] MED[place] Medicare [id number]
--- OUTSIDE RECORDS SUMMARY | 2024-07-22 13:54 | XMS_ITS | Clinical Summary ---
Author Organization [facility] Address [address] [place] [address] Care Team Providers Care Adjunct Psychology Faculty Member Name Role Phone Bebe Callahan MD Primary Care Provider + Source Comments [facility],non-owned Affiliates and Associated Physician Practices is amultiple site organization consisting of ambulatory clinics and hospital sitesin [place], [place], [place] and [place]. This disclosure is being madepursuant to the Care Everywhere program and may not contain all information available regarding this patient. Last updated 18.[facility] Allergies Active Allergy Reactions Criticality Noted Date [...] fluticasone propionate (FLONASE) 50 MCG/ACT nasal spray Crowell 2 Sprays into each nostril once daily [...] mg by mouth daily with breakfast Active [place]-3 Fatty Acids (FISH OIL) 1000 MG CAPS [...] VACCINE (1 - 2023-2 5 season) 2023 DEPRESSION SCREENING 04/16/2024 INFLUENZA VACCINE (Season Ended) 2024 Respiratory Syncytial Virus (RSV) Vaccine Pt: or [...] age to complete this topic Care Teams Adjunct Psychology Faculty Member Relationship Specialty Start Date End Date Bebe Callahan MD [address] [place] [address] PCP - General 08/16/21
--- OUTSIDE RECORDS SUMMARY | 2024-07-22 13:54 | XMS_ITS | Clinical Summary ---
Author Organization [facility] Address [address] [place] [address] Care Team Providers Care Neckties Painter Name Role Phone Lashell Rodrigues Primary Care Provider [phone] Allergies Active Allergy Reactions Criticality Noted Date Comments Cefuroxime Hives 12/10/2019 Nitrofurantoin Anaphylaxis High 12/10/2019 Encounters Date Type Department Care Team Description 05/22/2024 3:56 PM MORTGAGE CONSULTANT - 05/22/2024 11:59 PM MORTGAGE CONSULTANT Hospital Encounter [facility] [address] Gianfranco Cottrell MD Discharge Disposition: Home or Self Care (Routine Discharge) 05/22/2024 Orders Only [facility] [address] Gianfranco Cottrell MD from Last 3 Months [...] FUNGUS W/ STAIN Routine 05/22/2024 10:20 AM MORTGAGE CONSULTANT Chronic pansinusitis CULTURE, ANAEROBIC Routine 05/22/2024 10 :20 AM MORTGAGE CONSULTANT Chronic pansinusitis CULTURE, WOUND, W/GRAM STAIN Routine 05/22/2024 10:20 AM MORTGAGE CONSULTANT Chronic pansinusitis from Last 3 Months Results * CULTURE FUNGUS W/ STAIN (05/22/2024 10:20 AM MORTGAGE CONSULTANT) SPEC DESCRIPTION NASAL 05/22/2024 3:58 PM MORTGAGE CONSULTANT [facility] SPECIAL REQUESTS NO SPECIAL REQUEST 05/22/2024 3:58 PM MORTGAGE CONSULTANT [facility] STAIN RESULT: NO YEAST OR FUNGAL ELEMENTS SEEN 05/23/2024 11:16 AM MORTGAGE CONSULTANT [facility] CULTURE RESULT NO FUNGUS ISOLATED AT 4 WEEKS. 06/21/2024 4:35 PM [facility] SPECIMEN FROM INTERNAL NOSE / Unknown 05/22/2024 10:20 AM MORTGAGE CONSULTANT 05/22/2024 3:59 PM MORTGAGE CONSULTANT Gianfranco Cottrell MD MICROBIOLOGY - GENERAL ORDERABL ES Final Result [facility] [address] [place] [address], * (ABNORMAL) CULTURE, WOUND, W/GRAM STAIN (05/22/2024 10:20 AM MORTGAGE CONSULTANT) SPEC DESCRIPTION NOSE 05/22/2024 3:58 PM MORTGAGE CONSULTANT [facility] SPECIAL REQUESTS NO SPECIAL REQUEST 05/22/2024 3:58 PM [facility] GRAM STAIN RESULT MANY WHITE BLOOD CELLS SEEN 05/23/2024 10:35 AM [facility] GRAM STAIN RESULT NO ORGANISMS SEEN 05/23/2024 10:35 AM [facility] CULTURE RESULT SPARSE GROWTH OF ACINETOBACTER LWOFFII (A) 05/25/2024 8:07 AM [facility] SPECIMEN FROM NOSE / Unknown 05/22/2024 10:20 AM MORTGAGE CONSULTANT 05/22/2024 3:58 PM MORTGAGE CONSULTANT Narrative Organism Antibiotic Method Susceptibility Acinetobacter lwoffii AMPICILLIN/SULBACTAM KD (VITEK) <=2: Sensitive Acinetobacter lwoffii CEFTRIAXONE DK (VITEK) <=1: Sensitive Acinetobacter lwoffii CEFTAZIDIME DK (VITEK) <=1: Sensitive Acinetobacter lwoffii GENTAMICIN DK (VITEK) <=1: Sensitive Acinetobacter lwoffii LEVOFLOXACIN DK (VITEK) <=0.12: Sensitive Acinetobacter lwoffii TRIMETH-SULFAMETH. DK (VITEK) <=20: Sensitive Gianfranco Cottrell MD MICROBIOLOGY - GENERAL ORDERABL ES Final Result Performing Organization Address [facility] Co de Phone Number [facility] [address] [place] [address], [place] [phone] * CULTURE ANAEROBIC (05/22/2024 10:20 AM MORTGAGE CONSULTANT) SPEC DESCRIPTION NASAL 05/22/2024 3:58 PM MORTGAGE CONSULTANT [facility] SPECIAL REQUESTS NO SPECIAL REQUEST 05/22/2024 3:58 PM MORTGAGE CONSULTANT [facility] GRAM STAIN RESULT MANY WHITE BLOOD CELLS SEEN 05/23/2024 10:35 AM MORTGAGE CONSULTANT [facility] GRAM STAIN RESULT NO ORGANISMS SEEN 05/23/2024 10:35 AM MORTGAGE CONSULTANT [facility] CULTURE RESULT NO ANAEROBES ISOLATED AT 5 DAYS. 05/27/2024 6:48 AM MORTGAGE CONSULTANT [facility] SPECIMEN FROM INTERNAL NOSE / Unknown 05/22/2024 10:20 AM MORTGAGE CONSULTANT 05/22/2024 3:59 PM MORTGAGE CONSULTANT Gianfranco Cottrell MD MICROBIOLOGY - GENERAL ORDERABL ES Final Result Performing Organization Address [facility]/ZIP Co de Phone Number [facility] [address] [place] [address], [place] [phone] from Last 3 Months Insurance MEDICARE [employer] Advance Directives Documents on File Type Date Recorded Patient Ramp And Cargo Supervisor Expl anation Advance Directives and Livin g Will 12/01/2015 POWER OF LEAD CASHIER Advance Directives and Livin g Will 12/01/2015 ADVANCE DIRECTIVE Care Teams Neckties Painter Relationship Specialty Start Date End Date Lashell Rodrigues DO PCP - General FAMILY PRACTICE 12/10/19
--- OUTSIDE RECORDS SUMMARY | 2024-07-22 13:54 | XMS_ITS | Clinical Summary ---
Author Organization [facility] [address] Address [address] [facility] [address] [place] [address] Care Team Providers Care Mobile Equipment Servicer Name Role Phone Bebe Callahan MD Primary Care Provider Allergies Active Allergy Reactions Criticality Noted Date Comments Cefuroxime Hives Medium 05/26/2016 House Dust Mold Nitrofurantoin Hives,Anaphylaxis,U rticaria High 09/25/2014 Reaction: Hives, Other reaction(s): Hives Hives Brxvmqt-Gds-Bsk Reductase Inhibitors Muscle pain Medium 08/09/2022 Tree [...] Cardiac pacemaker in situ 06/21/2022 Overview (12/11/2023): [employer] [place] Dual Pacemaker, Dx; Sinus Node Dysfunction, Symptomatic Bradycardia, PAF. DOI 06/21/2022[facility] [employer] remote monitoring. Chronic fatigue 01/17/2022 LVH (left ventricular hypertrophy) 01/17/2022 Abnormal ECG 01/17/2022 Symptomatic bradycardia 12/09/2021 Chronotropic incompetence with sinus node dysfun ction 12/09/2021 Near syncope 12/09/2021 Syncope and collapse 12/09/2021 Nonrheumatic aortic valve stenosis 12/09/2021 Atypical chest pain 07/23/2010 Epigastric pain 07/23/2010 Mediastinal mass 12/07/2009 Encounters Date Type Department Care Team Description 06/24/2024 7:15 AM CDT Ancillary Procedure [facility] Cardiology [facility] [facility] [address] [place] [phone] Paroxysmal atrial fibrillation (HCC) [I48.0] (Primary Dx); Symptomatic bradycardia; Chronotropic incompetence with sinus node dysfunction [I49.8]; Cardiac pacemaker in situ [Z95.0] from Last 3 Months Surgical History Surgery Date Site/Laterality Comments GA GASTRIC RSTCV W/BYP W/VAN RT LIMB 150 CM/< Gastric Surgery For Morbid Obesity Bypass With Leticia-en-Y - (Added by TW Conv) GA ESOPHAGOGASTRODUODENOSCOP Y TRANSORAL DIAGNOSTIC Diagnostic Esophagogastroduodenoscopy - [...] on file Legal Sex Female 1:28 AM CIGARETTE FILTER INSPECTOR Gender Identity Female 02/04/2021 10:35 AM CDT [...] life to FIGUEROA. Presenting: AP-VS. AP-72 %, ROOM SERVICE FOOD SERVICE ATTENDANT-0 %. No AT/AF episodes noted,. No Ventricular arrhythmias detected. Medication: ASA 81 mg. Follow up: office pacemaker f/u 11/05/2024. [employer] remote f/u 6 months. Lashon Crabtree, RN Marychuy Duval MD CV CARDIAC SERVICES PROCEDU RES Final Result from Last 3 Months Insurance MEDICARE FOR LIFE MEDICARE FOR LIFE MEDICARE FOR LIFE Care Teams Mobile Equipment Servicer Relationship Specialty Start Date End Date Bebe Callahan MD [address] [place] [address] PCP - General Family Medicine 01/11/21
== END 2024-07-22 12:47 | disposition home or self-care (01) ==
LOC: ANHIMG 12:47
PROVIDERS: PCP Family Medicine; Visit Provider Student in an Organized Health Care Education/Training Program
DX: R92.8 Other abnormal and inconclusive findings on diagnostic imaging of breast (principal)
CPT/HCPCS: 77061; 77065; G0279

== ENCOUNTER 2025-01-27 09:07 | Outpatient (CLI) | payer MEDICARE, OTHER, SELFPAY ==
[2025-01-27 09:45] LABS: Hematocrit 37.9 % (37.0-47.0); Hemoglobin 11.7 g/dL (12.0-15.0); Immature Granulocyte Percent A 0.0 % (0-0.5); Lymphocytes Absolute Auto 1.77 K/mm3 (0.9-3.2); Mean Corpuscular HGB Conc 30.9 g/dl (32-36); Mean Corpuscular Hemoglobin 19.4 pg (26-34); Mean Corpuscular Volume 63.0 fl (80-100); Nucleated Red Blood Cells Absolute Auto 0.000 K/mm3 (0.0-0.012); Nucleated Red Blood Cells Perc 0.0 % (0.0-0.2); Platelet Count Result 290 k/mm3 (150-375); Red Blood Count 6.02 M/mm3 (4.2-5.4); White Blood Count 5.6 K/mm3 (4.5-10.0)
--- OUTSIDE RECORDS SUMMARY | 2025-01-27 10:03 | XMS_ITS | Encounter Summary ---
Author Organization [facility] Address [address] [place] [address] Care Team Providers Care Warp Changer Name Role Phone Bebe Callahan MD Primary Care Provider + Encounter Details Date Type Department Care Team (Late st Contact Info) Description 01/16/2018 Lab Requisition [facility] Care DermPath Lab [address] [facility] [address] [facility] [place] [phone] Sandra Cuello MD [address] [facility] [address] [place] [address] Social History Tobacco Use Types Packs/Day Years Used Date Smoking Tobacco: Former Cigarettes Q uit: 04/16/1993 Alcohol Use Standard Drinks/Week Comments No 0 (1 standard drink = 0.6 oz pur e alcohol) Comments No Sex and Gender Information Value Date Recorded Sex Assigned at Not on file Legal Sex Female 10:45 AM CDT Gender Identity Not on file Sexual Orientation Not on file documented as of this encounter Functional Status * Is person deaf or have serious hearing difficulty? Answer Date of Assessment Author No 10/13/2014 6:35 AM Katharine Terrell RN * Is person blind or have serious difficulty seeing? Answer Date of Assessment Author No 10/13/2014 6:35 AM Katharine Terrell RN * Does person have serious difficulty walking/climbing stairs? Answer Date of Assessment Author No 10/13/2014 6:35 AM Katharine Terrell RN * Does person have difficulty dressing/bathing? Answer Date of Assessment Author No 10/13/2014 6:35 AM CDT Katharine Amador RN * Does person have difficulty doing errands alone? Answer Date of Assessment Author No 10/13/2014 6:35 AM CDT Katharine Amador RN documented as of this encounter Mental Status * Does person have difficulty concentrating/remembering/making decisions? Answer Entry Date Author No 10/13/2014 6:35 AM CDT Katharine Amador RN documented in this encounter Plan of Treatment Not on file documented as of this encounter Procedures Procedure Name Priority Date/Time Associated Diagnosis Comments DERMATOPATH TECHNICAL REPORT Routine 01/15/2018 12:00 AM CDT documented in this encounter Results * DERMATOPATH TECHNICAL REPORT (01/15/2018 12:00 AM CDT) Case Report Dermatopathology Report Case: [id number] Authorizing Provider: Sandra Cuello MD Collected: 01/15/2018 12:00 AM Pathologist: Yanet Huff MD Received: 01/16/2018 06:48 AM Specimen: Skin, right neck 8 9:16 AM CDT DERMATOPATHOLOGY LABORATORY Clinical History R/O cyst. Check margins. 8 9:16 AM CDT DERMATOPATHOLOGY LABORATORY Gross Description Specimen A: Received is one formalin filled container labeled with the patient's name and designated right neck. The specimen consists of a [id number] excision. The margin is inked green. The specimen is bisected and submitted in 1 cassette with 3 additional pieces measuring [id number], [id number], & 5b3u4ng. Jar 0. [facility] Dermatopathology Laboratory performed the technical component only. 8 9:16 AM CDT DERMATOPATHOLOGY LABORATORY Embedded Images 9:16 AM CDT DERMATOPATHOLOGY LABORATORY DISCLAIMER An external and internal positive and negative controls are appropriate for the histochemical, immunohistochemical and immunofluorescence stain(s) in this case (if any), except where stated explicitly. The performance characteristics of the stain(s) cited in this report were developed and its performance characteristic determined by the Dermatopathology Laboratory at [facility]. These tests need not be, and therefore are not, approved by the [place] Food and Drug Administration. The tests are used for clinical purposes. 8 9:16 AM CDT DERMATOPATHOLOGY LABORATORY at 0916 CDT Pathology/Cytolog y TISSUE SPECIMEN FROM SKIN / Unknown 01/15/2018 01/16/2018 6:48 AM CDT Sandra Cuello MD LAB - PATHOLOGY/CYTOLOGY OR DERABLES Final Result DERMATOPATHOLOGY LABORATORY [facility] - Department of Dermatology [address] [place] [address], 5th Floor Lab [address] [phone] documented in this encounter Visit Diagnoses Not on filedocumented in this encounter Care Teams Warp Changer Relationship Specialty Start Date End Date Bebe Callahan MD [address] [place] [address] PCP - General 08/16/21 documented as of this encounter
--- OUTSIDE RECORDS SUMMARY | 2025-01-27 10:03 | XMS_ITS | Encounter Summary ---
Author Organization [facility] Address [address] [facility] [place] [address] Care Team Providers Care Hair And Makeup Designer Name Role Phone Bebe Callahan MD Primary Care Provider + Encounter Details Date Type Department Care Team (Late st Contact Info) Description 06/02/2019 Lab Requisition [facility] Care DermPath Lab [address] [facility] [place] [phone] Sandra Cuello MD [address] [facility] 3 [place] [address] Social History Tobacco Use Types Packs/Day Years [...] Terrell RN * Does person have difficulty doing errands alone? Answer Date of Assessment Author No 10/13/2014 6:35 AM Katharine Terrell RN documented as of this encounter Mental Status * Does person have difficulty concentrating/remembering/making decisions? Answer Entry Date Author No 10/13/2014 6:35 AM Katharine Terrell RN documented in this encounter Plan of Treatment Not on file documented as of this encounter Procedures Procedure Name Priority Date/Time Associated Diagnosis Comments DERMATOPATHOLOGY Routine 2019 12:0 0 AM WEB DESIGNER documented in this encounter Results * DERMATOPATHOLOGY (2019 12:00 AM WEB DESIGNER) Case Report Dermatopathology Report Case: [id number] Authorizing Provider: Sandra Cuello MD Collected: 2019 12:00 AM Ordering Location: [facility] DermPath Lab Received: 06/02/2019 07:38 AM Pathologist: Tamir Potter MD Specimen: Skin, right upper lip 0 1:18 PM [facility] DERMATOPATHOLOGY LABORATORY Final Diagnosis Specimen A. SKIN, right upper lip: BASAL CELL CARCINOMA, NODULAR TYPE (C44.319) (see microscopic description) 0 1:18 PM [facility] DERMATOPATHOLOGY LABORATORY at 1318 WEB DESIGNER Clinical History BCC vs cyst. Non-healing. 0 1:18 PM WEB DESIGNER DERMATOPATHOLOGY LABORATORY Gross Description Specimen A: Received is one formalin filled container labeled with the patient's name and designated right upper lip. The specimen consists of a shave measuring [id number]. Jar 0. 0 1:18 PM [facility] DERMATOPATHOLOGY LABORATORY Microscopic Description Specimen A. SKIN, right upper lip: Within the dermis there are aggregates of basaloid cells with a high nuclear to cytoplasmic ratio and peripheral palisading. Additional deeper sections were obtained and reviewed. 0 1:18 PM WEB DESIGNER DERMATOPATHOLOGY LABORATORY Disclaimer An external and internal positive and negative controls are appropriate for the histochemical, immunohistochemical and immunofluorescence stain(s) in this case (if any), except where stated explicitly. The performance characteristics of the stain(s) cited in this report were developed and its performance characteristic determined by the Dermatopathology Laboratory at [facility], directed by Dr. Talya Potter. These tests need not be, and therefore are not, approved by the [place] Food and Drug Administration. The tests are used for clinical purposes. Billing Codes Specimen Charges Stain Charges 13960 1 0 1:18 PM WEB DESIGNER DERMATOPATHOLOGY LABORATORY Embedded Images 0 1:18 PM WEB DESIGNER DERMATOPATHOLOGY LABORATORY Pathology/Cytolog y TISSUE SPECIMEN FROM SKIN / Unknown 2019 06/02/2019 7:38 AM WEB DESIGNER Sandra Cuello MD LAB - PATHOLOGY/CYTOLOGY OR DERABLES Final Result DERMATOPATHOLOGY LABORATORY [facility] - Department of Dermatology [facility] 5th Floor Lab B [address] [phone] documented in this encounter Visit Diagnoses Not on filedocumented in this encounter Care Teams Hair And Makeup Designer Relationship Specialty Start Date End Date Bebe Callahan MD [address] [place] [address] PCP - General 08/16/21 documented as of this encounter
--- OUTSIDE RECORDS SUMMARY | 2025-01-27 10:03 | XMS_ITS | Clinical Summary ---
Author Organization [facility] [address] Address [address] [place] [address] Care Team Providers Care Cyber Engineer Name Role Phone Juan Alberto Williamson MD Primary Care Provider Allergies Active Allergy Reactions Criticality Noted Date Comments Cefuroxime Hives Medium 05/26/2016 House Dust Mold Nitrofurantoin Hives,Anaphylaxis,U rticaria High 09/25/2014 Reaction: Hives, Other reaction(s): Hives Hives Oijpkik-Eox-Ing Reductase Inhibitors Muscle pain Medium 08/09/2022 Tree And Shrub Pollen Medications D-MANNOSE ORAL 1 Active ezetimibe (ZETIA) 10 mg tablet Zetia 10 mg tablet 7 Active FLUoxetine (PROzac) 40 mg capsule 1 Active biotin 10,000 mcg capsule 1 Active olopatadine HCl (PATADAY ONCE DAILY RELIEF OPHT) 1 Active omeprazole (PriLOSEC) 40 mg capsule omeprazole 40 mg capsule,delayed release 7 Active aspirin 81 mg enteric coated tablet Take 1 tablet (81 mg total) by mouth daily Active Xhance 93 mcg/actuation aerosol breath activated 5 Active Active Problems Problem Noted Date Diagnosed Date Paroxysmal atrial fibrillation 08/09/2022 H/O syncope 08/09/2022 Mixed hyperlipidemia 08/09/2022 Statin myopathy 08/09/2022 Visit for wound check 06/28/2022 Cardiac pacemaker in situ 06/21/2022 Overview (12/11/2023): Tintrironik Edora Dual Pacemaker, Dx; Sinus Node Dysfunction, Symptomatic Bradycardia, PAF. DOI 06/21/2022-[facility] TintrironiShogether remote monitoring. Chronic fatigue 01/17/2022 LVH (left ventricular hypertrophy) 01/17/2022 Abnormal ECG 01/17/2022 Symptomatic bradycardia 12/09/2021 Chronotropic incompetence with sinus node dysfun ction 12/09/2021 Near syncope 12/09/2021 Syncope and collapse 12/09/2021 Nonrheumatic aortic valve stenosis 12/09/2021 Atypical chest pain 07/23/2010 Epigastric pain 07/23/2010 Mediastinal mass 12/07/2009 Encounters Date Type Department Care Team Description 12/18/2024 1:00 PM CDT Office Visit [facility] Cardiology [address] [facility] [address] [place] [phone] Souleymane Baptiste MD Paroxysmal atrial fibrillation (HCC) (Primary Dx); Cardiac pacemaker in situ; Nonrheumatic aortic valve stenosis 11/05/2024 8:30 AM CDT Ancillary Procedure [facility] Cardiology [address] [place] [address] [address] [place] [phone] Cardiac pacemaker in situ (Primary Dx); SSS (sick sinus syndrome) (HCC); Paroxysmal atrial fibrillation (HCC); Bradycardia 11/05/2024 Orders Only [facility] Cardiology [address] [facility] [address] [place] [phone] Souleymane Baptiste MD Cardiac pacemaker in situ (Primary Dx); Paroxysmal atrial fibrillation (HCC); Symptomatic bradycardia; Sinus node dysfunction (HCC) from Last 3 Months Surgical History Surgery Date Site/Laterality Comments HI GASTRIC RSTCV W/BYP W/VAN RT LIMB 150 CM/< Gastric Surgery For Morbid Obesity Bypass With Leticia-en-Y - (Added by TW Conv) HI ESOPHAGOGASTRODUODENOSCOP Y TRANSORAL DIAGNOSTIC Diagnostic Esophagogastroduodenoscopy - [...] on file Legal Sex Female 1:28 AM SHOTBLASTER Gender Identity Female 02/04/2021 10:35 AM CDT Sexual Orientation Straight 02/04/2021 10 :35 AM CDT Obstetrics History Last Filed Vital Signs Vital Sign Reading Time Taken Comments Blood Pressure 118/80 12/18/2024 12:52 PM CDT Pulse 67 12/18/2024 12:52 PM CDT Temperature 36.8 C (98.2 F) 09/08/2016 8:44 AM CDT Respiratory Rate 98 01/17/2022 11:39 AM CDT Oxygen Saturation 96% 12/18/2024 12:52 PM CDT Inhaled Oxygen Concentration - - Weight 93.5 kg (206 lb 3.2 oz) 12/18/2024 12:52 PM CDT Height 167.6 cm (5' 6) 12/18/2024 12:52 PM CDT Body Mass Index 33.28 12/18/2024 12:52 PM CDT Plan of Treatment Health Maintenance Due Date Last Done Comments Breast Cancer Screening-Mammogram 1952 Colon Cancer Screening-Colonoscopy 1950 Depression Screening 1952 Fall Risk Assessment 1950 Hepatitis C Screening 1952 Osteoporosis Screening-Bone Density Scan 1952 Hepatitis B Screening 1970 Zoster Vaccine (1 of 2) 2002 Well Visit 65+ 2017 Covid-19 Vaccine (4 - 2024-2 6 season) 2024 01/11/2021, 07/02/2020, 06/08/2020 Influenza Vaccine (#1) 2024 , 12/18/2019, 12/18/2019, Additional history exists DTaP/Tdap/Td Vaccine (3 - Td or Tdap) 12/11/2028 12/11/2018, 06/26/2013 Pneumococcal vaccine 65+ Completed 020, 12/11/2018, 05/18/2016 Procedures Procedure Name Priority Date/Time Associated Diagnosis Comments DEVICE CHECK - IN OFFICE Routine 11/05/2024 8:07 AM CDT SSS (sick sinus syndrome) (HCC) Paroxysmal atrial fibrillation (HCC) Bradycardia from Last 3 Months Results * DEVICE CHECK - IN OFFICE (11/05/2024 8:07 AM CDT) Anatomical Region Laterality Modality Other Narrative 11/07/2024 12:17 PM CDT TintrironiShogether Edora Dual Pacemaker, Dx; Sinus Node Dysfunction, Symptomatic Bradycardia. DOI 06/21/2022-[facility]. ChipX remote monitoring. Supervising MD: Dr Jackson. Office DDD Pacemaker evaluation demonstrated appropriate device function. Left pectoral incision healing well without signs of infection noted. Battery function-Ok, 7.0 years 1 month remaining battery life to FIGUEROA. Appropriate lead measurements noted. Presenting rhythm-APVS. Underlying rhythm-SB 50 bpm. AP-72%, TANK RIVETER-0%. 7 Atrial high rate episodes noted, longest 2 minutes, iegm's Afib. 2 Ventricular high rate episodes noted, available iegm's SVT. Medications; no cardiac medications listed. No programming changes made to device settings. See scanned report. Office device f/u 02/03/2026. Biotronik remote f/u 02/10/2025. Lashon Crabtree, HAYDEN Gonzales Echavarria MD [facility] PROC EDURES Final Result from Last 3 Months Insurance MEDICARE [employer] MEDICARE FOR LIFE MEDICARE FOR LIFE Care Teams Cyber Engineer Relationship Specialty Start Date End Date Juan Alberto Williamson MD [address] [place] [address] PCP - General Family Medicine 11/05/24
--- OUTSIDE RECORDS SUMMARY | 2025-01-27 10:03 | XMS_ITS | Clinical Summary ---
Author Organization [facility] Address [address] [facility] [place] [address] Care Team Providers Care Voice Network Administrator Name Role Phone Bebe Callahan MD Primary Care Provider + Source Comments [facility],non-owned Affiliates and Associated Physician Practices is amultiple site organization consisting of ambulatory clinics and hospital sitesin [place], [place], [place] and [place]. This disclosure is being madepursuant to the Care Everywhere program and may not contain all information available regarding this patient. Last updated 18.[facility] Allergies Active Allergy Reactions Criticality Noted Date Comments Nitrofurantoin Urticaria 09/25/2014 Medications * Be aware that medications may not be up to date on this document. Alwaysverify current medications with the patient. sertraline (ZOLOFT) 25 MG tablet Take 25 [...] fluticasone propionate (FLONASE) 50 MCG/ACT nasal spray [place] 2 Sprays into each nostril once daily Active imipramine (TOFRANIL) 25 MG tablet Take 25 mg by mouth at bedtime Active multivitamin (OPURITY) CHEW tablet Take 1 Tab by mouth once daily Active Cyanocobalamin (B-12) 1000 MCG CAPS Take by mouth once daily Active Calcium Carbonate-Vitam in D (CALTRATE 600+D PO) Take by mouth [...] mg by mouth daily with breakfast Active [place]-3 Fatty Acids (FISH OIL) 1000 MG CAPS capsule Take by mouth once daily Active melatonin 5 MG CAPS capsule Take 5 mg by mouth at bedtime Active hydrocodone-guerda taminophen (NORCO) 5-325 MG tablet Take 1 Tab by mouth every 4 hours as needed for Pain 30 Tab 0 5 Active Active Problems No known active problems [...] 12:24 PM CDT Height 167.6 cm (5' 6) 10/19/2014 12:24 PM CDT Body Mass Index 30.18 10/19/2014 12:24 PM CDT Plan of Treatment Health Maintenance Due Date Last Done Comments BONE DENSITY TESTING 1950 COLOGUARD (AGES 45-75) - COL ON CA SCREENING 1952 COLON MONITORING 1952 COLONOSCOPY - COLON CA SCREENING 1952 CT COLONOGRAPHY - COLON CA SCREENING 1952 Colorectal Cancer Screening 1952 FIT - COLON CA SCREENING 1952 FLEX SIG - COLON CA SCREENING 1952 LIPID TESTING 1952 MAMMOGRAM 1952 HEPATITIS C SCREENING 05/20/1970 DTAP/TDAP/TD VACCINES (1 - Tdap) 1971 PNEUMOCOCCAL VACCINE 50+ (1 of 1 - PCV) 2002 ZOSTER VACCINE (1 of 2) 2002 DEPRESSION SCREENING 04/16/2024 COVID-19 VACCINE (1 - 2023-2 5 season) 2024 INFLUENZA VACCINE (#1) 2024 Respiratory Syncytial Virus (RSV) Vaccine Pt: [...] on patient's age to complete this topic Insurance MEDICARE Care Teams Voice Network Administrator Relationship Specialty Start Date End Date Bebe Callahan MD [address] [facility] [address] [place] [address] PCP - General 08/16/21
[2025-01-27 10:05] LABS: Alanine Aminotransferase 22 U/L (6-35); Albumin Level 4.1 g/dL (3.5-5.1); Alkaline Phosphatase 79 U/L (38-126); Anion Gap 7 mmol/L (4-12); Aspartate Amino Transferase 32 U/L (14-36); Bilirubin,Total 0.7 mg/dL (0.2-1.3); Blood Urea Nitrogen 20 mg/dL (7-17); Calcium 9.3 mg/dL (8.4-10.2); Carbon Dioxide 29 mmol/L (22-30); Chloride 103 mmol/L (98-107); Estimated Glomerular Filt Rate 60; Glucose 102 mg/dL (65-110); Potassium 4.8 mmol/L (3.4-5.0); Sodium 139 mmol/L (137-145); Total Protein 7.4 g/dL (6.3-8.2)
[2025-01-27 10:06] LABS: Cholesterol 246 mg/dL (0-200); HDL Direct 52 mg/dL; Hypochromasia 1+; Microcytosis 1+ (NORMAL); Schistocytes None Seen; Triglycerides 148 mg/dL (<150)
[2025-01-27 10:18] LABS: Hemoglobin A1C 5.6 % (<5.7)
[2025-01-27 10:32] LABS: Iron 114 ug/dL (37-170)
[2025-01-27 10:41] LABS: Percent Iron Saturation 33 % (20-50)
[2025-01-27 10:42] LABS: Thyroid Stimulating Hormone 2.030 uIU/mL (0.465-4.680)
[2025-01-27 11:07] LABS: Ferritin 31.30 ng/mL (11.1-264)
[2025-01-27 11:16] LABS: Vitamin B12 > 1000.0 pg/mL (239-931)
== END 2025-01-27 09:08 | disposition home or self-care (01) ==
PROVIDERS: Physician Assistant; PCP Family Medicine; Visit Provider Physician Assistant Medical
DX: E78.2 Mixed hyperlipidemia (principal); Z86.39 Personal history of other endocrine, nutritional and metabolic disease; E03.9 Hypothyroidism, unspecified; E55.9 Vitamin D deficiency, unspecified; D56.1 Beta thalassemia; D64.9 Anemia, unspecified; R53.83 Other fatigue; E07.9 Disorder of thyroid, unspecified
CPT/HCPCS: 36415; 80053; 80061; 82306; 82607; 82728; 83036; 83540; 83550; 84443; 85025